=== PATIENT | female | born 1940 | race Caucasian/White ===

== ENCOUNTER → 2016-11-04 | Outpatient (CLI) | payer OTHER ==
[2016-11-04 15:49] LABS: ASPARTATE AMINO TRANSFERASE 20 IU/L (8-39); BILIRUBIN,TOTAL 0.8 mg/dL (0.3-1.2); BLOOD UREA NITROGEN 34 mg/dL (7-22); BUN/CREATININE RATIO 22.66 (6-20); CALCIUM 9.4 mg/dL (8.7-10.7); CHLORIDE 99 meq/L (98-112); CREATININE 1.5 mg/dL (0.50-1.20); GLUCOSE 100 mg/dL (78-110); POTASSIUM 4.3 meq/L (3.8-5.2); SODIUM 139 meq/L (135-145); TOTAL PROTEIN 6.2 g/dL (6.1-8.0)
== END ==
LOC: LAB 08:26
PROVIDERS: ATTEND Physician Assistant Medical
DX: E03.9 Hypothyroidism, unspecified (principal); I10 Essential (primary) hypertension; I50.9 Heart failure, unspecified
CPT/HCPCS: 80053; 84443

== ENCOUNTER → 2016-12-09 | Outpatient (CLI) | payer OTHER ==
[2016-12-09 14:52] LABS: BILIRUBIN,TOTAL 0.7 mg/dL (0.3-1.2); CALCIUM 9.5 mg/dL (8.7-10.7); CREATININE 1.2 mg/dL (0.50-1.20); POTASSIUM 5.1 meq/L (3.8-5.2); TOTAL PROTEIN 6.6 g/dL (6.1-8.0)
== END ==
LOC: LAB 09:23
PROVIDERS: ATTEND Physician Assistant Medical
DX: I50.9 Heart failure, unspecified (principal); I10 Essential (primary) hypertension
CPT/HCPCS: 36415; 80053

== ENCOUNTER → 2017-01-03 | Outpatient (CLI) | payer OTHER ==
[2017-01-03 15:23] LABS: BASOPHILS # (AUTO) 0.06 10*3/UL; EOSINOPHILS % (AUTO) 6.3 % (0-8); HEMATOCRIT 43.6 % (37.0-47.0); HEMOGLOBIN 14.1 g/dL (12.0-16.0); IMM GRAN % (AUTO) 0.2 % (0-5); IMM GRAN# (AUTO) 0.01 10*3/UL; LYMPHOCYTES # (AUTO) 1.37 10*3/uL; LYMPHOCYTES % (AUTO) 23.5 % (10-50); MEAN CORPUSCULAR HEMOGLOBIN 30.5 PG (27-31); MEAN CORPUSCULAR HGB CONC 32.3 g/dL (33-37); MEAN PLATELET VOLUME 10.5 FL (7.4-12.2); MONOCYTES # (AUTO) 0.52 10*3/UL (0.3-0.8); MONOCYTES % (AUTO) 8.9 % (5-15); NEUTROPHILS # (AUTO) 3.51 10*3/UL; NEUTROPHILS % (AUTO) 60.1 % (50-80); RED BLOOD COUNT 4.62 10^6/uL (4.20-5.40); WHITE BLOOD COUNT 5.84 10^3/uL (4.8-10.8)
[2017-01-03 15:31] LABS: BILIRUBIN,TOTAL 0.6 mg/dL (0.3-1.2); BUN/CREATININE RATIO 40.9 (6-20); CALCIUM 9.7 mg/dL (8.7-10.7); CREATININE 1.1 mg/dL (0.50-1.20); POTASSIUM 4.7 meq/L (3.8-5.2); TOTAL PROTEIN 6.9 g/dL (6.1-8.0)
[2017-01-03 15:43] LABS: PLATELET MORPHOLOGY COMMENT NORMAL MORPHOLOGY (NORM)
== END ==
LOC: LAB 09:43
PROVIDERS: ATTEND Physician Assistant Medical
DX: J44.1 Chronic obstructive pulmonary disease with (acute) exacerbation (principal); I10 Essential (primary) hypertension; I50.9 Heart failure, unspecified
CPT/HCPCS: 80053; 85025

== ENCOUNTER → 2017-01-05 | Outpatient (CLI) | payer OTHER ==
--- NOTE | 2017-01-05 11:00 | DI ---
PA /LATERAL CHEST X-RAY, 01/05/2017 10:38 AM : Clinical History: Acute exacerbation of chronic obstructive airway disease. Previous Exam: 06/18/2016. There is no acute soft tissue or bony abnormality. There is cardiomegaly without CHF. There is no acu te infiltrate present. There is thickening of a major fissure and this is probably on the left side w here there is a density noted on the PA film in the costophrenic angle. This has not changed and may represent some fibrosis. There is marked pulmonary arterial hypertension. There are no pulmonary nodu les. Readin. There is no acute infiltrate or effusion. There is pleural thickening involving the left costophr enic angle and the left major fissure. 2. Cardiomegaly without CHF. 3. Marked pulmonary arterial hypertension.
== END ==
LOC: RAD 10:33
PROVIDERS: ATTEND Physician Assistant Medical
DX: J44.1 Chronic obstructive pulmonary disease with (acute) exacerbation (principal); I27.2 Other secondary pulmonary hypertension
CPT/HCPCS: 71020

== ENCOUNTER → 2017-01-31 | Outpatient (CLI) | payer OTHER ==
[2017-01-31 14:34] LABS: BLOOD UREA NITROGEN 84 mg/dL (7-22); CALCIUM 10.2 mg/dL (8.7-10.7)
== END ==
LOC: LAB 10:26
PROVIDERS: ATTEND Physician Assistant Medical
DX: I42.0 Dilated cardiomyopathy (principal)
CPT/HCPCS: 80048

== ENCOUNTER → 2017-03-14 | Outpatient (CLI) | payer OTHER ==
[2017-03-14 14:48] LABS: BLOOD UREA NITROGEN 56 mg/dL (7-22); CALCIUM 9.1 mg/dL (8.7-10.7)
== END ==
LOC: LAB 10:05
PROVIDERS: ATTEND Physician Assistant Medical
DX: I42.0 Dilated cardiomyopathy (principal)
CPT/HCPCS: 80048

== ENCOUNTER 2017-03-18 12:22 | Inpatient (IN) | payer OTHER ==
[2017-03-18] MEDS ORDERED: NORMAL SALINE 10 ML SYRINGE FLUSH IVP PRN (12:44)
[2017-03-18] MEDS ORDERED: ALBUTEROL SULFATE 2.5 MG/3 ML NEB ONE (12:44)
--- NOTE | 2017-03-18 12:44 | PDOC ---
Dyspnea HPI - General Chief Complaint: Dyspnea Stated Complaint: Hypoxia, Chest Pressure Date Seen by Provider: 03/18/17 Time Seen by Provider: 12:44 Source: POSITIVE: Patient - History of Present Illness Initial Comments: Ms. Claudio is a 76-year-old woman coming in today with shortness of breath since last Tuesday which was 4 days ago. She denies any fevers she denies any productive cough although she does have a mild dry cough at baseline that is unchanged. She has no nausea no vomiting. She reports compliance with all medications. She recently had her carvedilol increased. She endorses orthopnea and feels better when she is lying in a specific position. She uses oxygen at night at baseline but she has been using it during the day as well. She lives in [facility] and her primary doctor was unavailable today and so she came to the urgent care here in [facility]. They sent her here because they found to be hypoxic 80% on her home 3 L. When EMS arrived urgent care they found her to be 92% on 3 L. They gave her a DuoNeb, and she states that this helped her symptoms. - Patient Home Medications Home Medications: Home Medications Cetirizine HCl [Zyrtec] 10 mg PO DAILY #90 cap 11/09/12 Diclofenac Sodium [Voltaren] 2 gm TOPICAL QID #60 tube 07/30/13 Oxygen (O2) 1 l NS HS #2 unit 07/30/13 Imipramine HCl 1 tab PO QHS tab 02/20/14 Amitriptyline HCl 50 mg PO HS #30 tab 01/14/15 Spironolactone 25 mg PO DAILY #90 tab 01/30/16 Albuterol/Ipratropium Inhaler [Combivent Respimat Inhaler] 1 puff INH QID #3 each 07/07/16 Budesonide/Formoterol Fumarate [Symbicort] 2 puff INH BID #3 inh 07/07/16 Albuterol Sulfate [Ventolin Hfa] 2 puff INH Q4-6H #1 inh 07/11/16 Oxybutynin Chloride 1 tab PO BID #60 tab 07/14/16 Lisinopril 1 tab PO DAILY tab 12/09/16 Albuterol/Ipratrop Neb Soln [Duoneb Neb Soln] 1 vial INH TID #60 vial 12/16/16 Nebulizer 1 unit #1 unit 12/16/16 Simvastatin 20 mg PO QHS #90 tab 01/07/17 Levothyroxine Sodium 1 tab PO DAILY #90 tab 01/19/17 Fluticasone Propionate [Flonase Allergy Relief] 2 spr ALLEGRA DAILY #1 spr Furosemide 1 tab PO BID #180 tab 02/16/17 Montelukast Sodium [Singulair] 1 tab ORAL QD #90 tab 02/16/17 Hydrocodone/Acetaminophen [Hydrocodon-Acetaminophen 5-325] 1 tab PO Q4-6H #120 tab 03/07/17 Apixaban [Eliquis] 5 mg PO BID tab 03/18/17 Carvedilol 1 tab PO tab 03/18/17 - Patient Allergies Allergies/Adverse Reactions: Allergies Allergy/AdvReac Type Severity Reaction Status Date / Time clonidine HCl [From Catapres] Allergy Mild ITCHING Verified 03/18/17 13:23 Past Medical History Past Medical History Reviewed: Reviewed - No Changes ROS - Limitations ROS Limitations: No Limitations Constitution: REPORTS: Weakness Cardiovascular: REPORTS: Denies Cardiac Symptoms Respiratory: REPORTS: Cough Non Productive, Shortness Of Breath Neurological: REPORTS: Denies Neuro Symptoms Gastrointestinal: REPORTS: Denies GI Symptoms Endocrine: REPORTS: Denies Symptoms Musculoskeletal: REPORTS: Denies MS Symptoms Genitourinary: REPORTS: Denies Symptoms Eyes: REPORTS: Denies Symptoms ENT: REPORTS: Denies Symptoms Skin: REPORTS: Denies Skin Symptoms Lympathic: REPORTS: Denies Lympathic Symptoms Immunologic: POSITIVE: Denies Symptoms Psychiatric: POSITIVE: Denies Psych Symptoms Dyspnea Physical Exam - General Appearance General Appearance: REPORTS: Alert, Cooperative, No Acute Distress - HEENT HEENT: POSITIVE: Head Inspection Nml, Eyes Inspection Nml, Ears Inspection Nml, Nose Inspection Nml, PERRL, EOMI - Neck Neck: REPORTS: Normal Inspection - Respiratory Respiratory: REPORTS: Other (Course diffusely with no eladio wheezing. Somewhat diminished in bilateral bases. She is speaking in full sentences and is in no respiratory distress, she has no retractions.) - Cardiovascular Cardiovascular: REPORTS: Regular Rate and Rhythm, Heart Sounds Normal, Equal Pulses, Strong Pulses, Other (No lower extremity edema) Peripheral Pulses: Radial (R): 1+, Radial (L): 1+, Dorsalis-pedis (R): 1+, Dorsalis-pedis (L): 1+ - Abdomen Abdomen: Soft: (All Quadrants), Denies Tenderness: (All Quadrants), No Guarding : (All Quadrants), No Rebound: (All Quadrants), No Palpable Pulse: (All Quadrants), No Palpabale Mass: (All Quadrants) - Skin Skin: REPORTS: Intact, Normal For Race, No Rash - Extremities Extremity: Non-Tender: (All Extremities), Normal ROM: (All Extremities), Normal Inspection: (All Extremities) - Neurological / Psychological Neurological: POSITIVE: Affect Apporpriate, Oriented X3, plant production manager Normal As Tested, Motor Normal, Sensation Normal Dyspnea Progress - Results Reviewed by me Xrays/CTs/US Reviewed by me: Yes Radiology Findings: atelctasis and small L pleural effusion on chest Xray Lab Results:: Laboratory Results 03/18/17 03/18/17 Range/Units 13:27 13:30 WBC 12.38 H (4.8-10.8) 10^3/uL RBC 4.05 L (4.20-5.40) 10^6/uL Hgb 12.5 (12.0-16.0) g/dL Hct 38.6 (37.0-47.0) % MCV 95.3 (81-99) FL MCH 30.9 (27-31) PG MCHC 32.4 L (33-37) g/dL RDW Std Deviation 45.9 (39-50) fL RDW Coeff of Catarino 13.6 (11.5-14.5) % Plt Count 199 (140-350) 10*3/uL MPV 10.3 (7.4-12.2) FL Immature Gran % (Auto) 0.5 (0-5) % Neut % (Auto) 82.1 H (50-80) % Lymph % (Auto) 8.7 L (10-50) % [place] % (Auto) 8.1 (5-15) % Eos % (Auto) 0.3 (0-8) % Baso % (Auto) 0.3 (0-1) % Immature Gran # (Auto) 0.06 10*3/UL Neut # (Auto) 10.16 10*3/UL Lymph # (Auto) 1.08 10*3/uL [place] # (Auto) 1.00 H (0.3-0.8) 10*3/UL Eos # (Auto) 0.04 10*3/UL Baso # (Auto) 0.04 10*3/UL WBC Morphology Comment Normal morphology (NORM) Plt Morphology Comment Normal morphology (NORM) RBC Morph Comment Normal morphology (NORM) PT 12.0 H (9.7-11.4) secs INR 1.16 (0.00-5.90) N/A VBG pH 7.40 (7.32-7.42) VBG pCO2 33 L (45-55) mmHg VBG HCO3 20 L (22-26) mmol/L VBG Base Excess -5 L (-2-2) MMOL/L Sodium 140 (135-145) meq/L Potassium 4.9 (3.8-5.2) meq/L Chloride 103 (98-112) meq/L Carbon Dioxide 24 (23-33) meq/L Anion Gap 13 (5-20) BUN 51 H (7-22) mg/dL Creatinine 1.4 H (0.50-1.20) mg/dL Estimated GFR Business Planning Manager BUN/Creatinine Ratio 36.42 H (6-20) Glucose 112 H (78-110) mg/dL Calculated Osmolality 304.0 H (267-292) mOsm/kg Calcium 8.8 (8.7-10.7) mg/dL Magnesium 2.1 (1.6-2.4) mg/dL Total Bilirubin 0.9 (0.3-1.2) mg/dL AST 18 (8-39) IU/L ALT 21 (9-52) IU/L Alkaline Phosphatase 84 (38-126) IU/L Troponin I 0.030 (< 0.040) ng/mL Total Protein 6.9 (6.1-8.0) g/dL Albumin 3.7 (3.5-4.8) g/dL Globulin 3.2 (2.50-4.10) g/dL Albumin/Globulin Ratio 1.10 L (1.3-2.0) mg/g EKG Interpretation:: POSITIVE: Normal Sinus Rhythm, Normal Rate - Patient's Progress MDM / ED Course: Ms. Claudio is a 76-year-old woman coming in today with shortness of breath and new hypoxemia. The DuoNeb did seem to help her breathing, but she is not wheezy and her blood gas CO2 is not elevated. Her chest x-ray shows no evidence of pneumonia. There was quite a bit of atelectasis which might be causing her hypoxia. There is no evidence of eladio pulmonary edema. We will plan to admit for monitoring of her hypoxemia and her story status. I contacted Dr. Lazcano who accepted the patient for admission. Patient remained otherwise stable in the emergency department Patient Care Time - Estimated PCT Patient Care Time (In Minutes): 30 Vital Signs - VS Reviewed Vital Signs Reviewed: Yes Discharge Clinical Impression: Chronic obstructive lung disease, Respiratory insufficiency Discharge Disposition: Admit to Inpatient Condition: Fair Care Transferred To: Dr Elliot Farley Date Decision to Admit to Inpatient: 03/18/17 Time Decision to Admit to Inpatient: 14:23
--- NOTE | 2017-03-18 12:50 | EKG ---
[address] [place] [address] Measurements Intervals [place] Rate: 95 P: 70 CT: 166 QRS: -69 QRSD: 154 T: 111 QT: 378 QTc: 430 Interpretive Statements SINUS RHYTHM WITH FREQUENT SUPRAVENTRICULAR PREMATURE COMPLEXES MARKED LEFT AXIS DEVIATION LEFT BUNDLE BRANCH BLOCK Compared to ECG 06/01/2016 14:28:40 No significant changes Electronically Signed On 03-18-17 18:00:00 MDT by Raul Couch [email or web address]
[2017-03-18 13:32] LABS: BASOPHILS # (AUTO) 0.04 10*3/UL; BASOPHILS % (AUTO) 0.3 % (0-1); EOSINOPHILS # (AUTO) 0.04 10*3/UL; EOSINOPHILS % (AUTO) 0.3 % (0-8); HEMATOCRIT 38.6 % (37.0-47.0); HEMOGLOBIN 12.5 g/dL (12.0-16.0); LYMPHOCYTES # (AUTO) 1.08 10*3/uL; MEAN CORPUSCULAR HEMOGLOBIN 30.9 PG (27-31); MEAN CORPUSCULAR HGB CONC 32.4 g/dL (33-37); MEAN CORPUSCULAR VOLUME 95.3 FL (81-99); MEAN PLATELET VOLUME 10.3 FL (7.4-12.2); MONOCYTES % (AUTO) 8.1 % (5-15); NEUTROPHILS # (AUTO) 10.16 10*3/UL; NEUTROPHILS % (AUTO) 82.1 % (50-80); RED BLOOD COUNT 4.05 10^6/uL (4.20-5.40)
[2017-03-18 13:45] LABS: VENOUS PH 7.4 (7.32-7.42)
[2017-03-18 14:07] LABS: BLOOD UREA NITROGEN 51 mg/dL (7-22); BUN/CREATININE RATIO 36.42 (6-20); CALCIUM 8.8 mg/dL (8.7-10.7); PLATELET MORPHOLOGY COMMENT NORMAL MORPHOLOGY (NORM); RBC MORPHOLOGY COMMENT NORMAL MORPHOLOGY (NORM); WBC MORPHOLOGY COMMENT NORMAL MORPHOLOGY (NORM)
[2017-03-18 14:08] LABS: SERUM ALBUMIN 3.7 g/dL (3.5-4.8)
--- NOTE | 2017-03-18 14:10 | DI ---
AP CHEST X-RAY, 03/18/2017 12:45 PM : Clinical History: Dyspnea. Previous Exam: 01/05/2017. There is no acute soft tissue or bony abnormality. There is cardiomegaly without definite CHF. There is blunting of the left costophrenic angle probably secondary to fluid. Bilateral lower lobe atelecta sis is present. There is also some atelectasis in the right midlung field. There is pulmonary arteria l hypertension. There are no pulmonary nodules. Readin. Cardiomegaly without CHF. 2. Bilateral lower lobe atelectasis with probable left pleural effusion.
[2017-03-18] MEDS ORDERED: LIDOCAINE W/ SODIUM BICARB 0.5 ML SYR SUBD PRN (15:01)
[2017-03-18] MEDS ORDERED: methylPREDNISolone 125 MG/2 ML VIAL IVP SCH (15:01)
[2017-03-18] MEDS ORDERED: cefTRIAXone Inj 2 GM in Sodium Chloride 0.9% 100 ML IV SCH (15:01)
[2017-03-18] MEDS: IPRATROPIUM/ALBUTEROL SULFATE 3 ML NEB NEB SCH ×2 (15:41→19:47)
[2017-03-18] MEDS ORDERED: POTASSIUM CHLORIDE 20 MEQ TAB PO ONE (16:03)
[2017-03-18] MEDS ORDERED: FUROSEMIDE 10 MG/1 ML - 10 ML IVP ONE (16:03)
--- NOTE | 2017-03-18 16:38 | PDOC ---
History and Physical - History of Present Illness Date and Time of Service: 03/18/2017, 16:30 Chief Complaint: chest discomfort and shortness of breath History of Present Illness: This is a 76 YO female that presents with some chest tightness and shortness of breath since Tuesday. She says her coreg was increased that day and that she has not noticed much help with diuresis with spironolactone. She states that this has been getting worse and her ironing pleater recommended she come in for evaluation. Her chest X-ray showed a small pleural effusion. Troponin was negative. Has had these symptoms with CHF exacerbations in May of this past year. Denies a lot of swelling in lower extremities, but has had some cough with her shortness of breath the past two days. She denies any other exacerbating symptoms. Short of taking her medications as prescribed, no further interventions were tried prior to calling her ironing pleater office today. She denies any prior ND and states she was placed on eliquis because her blood was too thick to complete a heart catheterization. Past Medical History Medical History: 1. CHF, probably NYHA class II-III. 2. COPD. 3. RALF, but cannot tolerate CPAP therapy. 4. HTN. 5. Arthritis. 6. Hypothyroidism. 7. Seasonal allergies Surgical History: 1. Appendectomy. 2. Hysterectomy. 3. LAP-BAND. 4. Total Knee Replacement. 5. Total Shoulder Replacement. 6. heart catheterization, per patient, in past 12 months. Pertinent Family History: no family history of CHF. no family history of diabetes. Past Social History: does not smoke or drink. . 4 children, but one passed on. Lives near [place], [place]. Tobacco Use: Never Smoker Substance Use Type: None Alcohol Use: None Medication / Allergies Home Medications: Home Medications Medication Instructions Recorded Confirmed Type Cetirizine HCl [Zyrtec] 10 mg PO DAILY #90 cap 11/09/12 03/18/17 Clinic Diclofenac Sodium [Voltaren] 2 gm TOPICAL QID #60 tube 07/30/13 03/18/17 Clinic Oxygen (O2) 1 l NS HS #2 unit 07/30/13 Clinic Imipramine HCl 1 tab PO QHS tab 02/20/14 03/18/17 History Amitriptyline HCl 50 mg PO HS #30 tab 01/14/15 03/18/17 Clinic Spironolactone 25 mg PO DAILY #90 tab 01/30/16 03/18/17 Clinic Albuterol/Ipratropium Inhaler 1 puff INH QID #3 each 07/07/16 Clinic [Combivent Respimat Inhaler] Budesonide/Formoterol Fumarate 2 puff INH BID #3 inh 07/07/16 03/18/17 Clinic [Symbicort] Albuterol Sulfate [Ventolin Hfa] 2 puff INH Q4-6H #1 inh 07/11/16 Clinic Oxybutynin Chloride 1 tab PO BID #60 tab 07/14/16 03/18/17 Clinic Lisinopril 1 tab PO DAILY tab 12/09/16 03/18/17 History Albuterol/Ipratrop Neb Soln 1 vial INH TID #60 vial 12/16/16 Clinic [Duoneb Neb Soln] Nebulizer 1 unit #1 unit 12/16/16 Clinic Simvastatin 20 mg PO QHS #90 tab 01/07/17 03/18/17 Clinic Levothyroxine Sodium 1 tab PO DAILY #90 tab 01/19/17 03/18/17 Clinic Fluticasone Propionate [Flonase 2 spr ALLEGRA DAILY #1 spr 01/28/17 03/18/17 Clinic Allergy Relief] Furosemide 1 tab PO BID #180 tab 02/16/17 03/18/17 Clinic Montelukast Sodium [Singulair] 1 tab ORAL QD #90 tab 02/16/17 03/18/17 Clinic Hydrocodone/Acetaminophen 1 tab PO Q4-6H #120 tab 03/07/17 03/18/17 Clinic [Hydrocodon-Acetaminophen 5-325] Apixaban [Eliquis] 5 mg PO BID tab 03/18/17 03/18/17 History Carvedilol 1 tab PO BID tab 03/18/17 03/18/17 History Allergies/Adverse Reactions: Allergies Allergy/AdvReac Type Severity Reaction Status Date / Time clonidine HCl [From Catapres] Allergy Mild ITCHING Verified 03/18/17 15:16 Review of Systems - Review of Systems All Systems: Reviewed & No Additional Complaints Except as Stated (I did a 12 point review of systems, and it was negative exept as per HPI and that noted below:) - Respiratory Respiratory: REPORTS: Cough, Dyspnea At Rest, Dyspnea with Exertion - Cardiovascular Cardiovascular: REPORTS: Chest Pain - Gastrointestinal Gastrointestinal / Abdominal: REPORTS: Negative System Review - Genitourinary Genitourinary: REPORTS: Incontinence (chronic) - Musculoskeletal Musculoskeletal: REPORTS: Other (some arthritis) - Neurological Neurologic: REPORTS: Headache (this week.) Exam - Vitals Vital Signs: Vital Signs Height 5 ft Weight 192 lb 11.2 oz Vital Signs - Last Taken Temperature 98.7 F 03/18/17 12:36 Pulse Rate 67 03/18/17 12:36 Respiratory Rate 16 03/18/17 12:36 Blood Pressure 124/43 03/18/17 12:36 Pulse Ox 96 03/18/17 12:36 on oxygen. - General General Appearance: POSITIVE: No Acute Distress, Cooperative, Obese - Head Head Exam: POSITIVE: Normal Inspection, Normocephalic, Atraumatic - Eye Eye Exam: POSITIVE: No Scleral Icterus - ENT ENT Exam: POSITIVE: Mucous Membranes Moist - Neck Neck Exam: POSITIVE: Normal Inspection, No Tenderness, No Thyromegaly - Respiratory Respiratory Exam: POSITIVE: Breathing Non Labored, Normal to Percussion and Palpation, Wheezes - Cardiovascular Cardiovascular Exam: POSITIVE: RRR, No Murmur, No Clicks, No Gallops, No Rubs, No JVD - GI/Abdominal GI/Abdominal Exam: POSITIVE: Normal Bowel Sounds, Non Tender, Non Distended, Soft - Rectal Rectal Exam: POSITIVE: Deferred - External Exam: POSITIVE: Deferred Exam: POSITIVE: Deferred - Extremities Extremities Exam: POSITIVE: No Clubbing Present, No Cyanosis Present, +1 Edema - Back Back Exam: POSITIVE: No CVA Tenderness - Neurological Neurological Exam: POSITIVE: Alert, Oriented x 3, No Facial Droop, Speech Intact / Clear, Moves All Extremities Equally - Psychiatric Psychiatric Exam: POSITIVE: Normal Affect, Normal Mood - Central Line Examination Central Line Present on Admission: No Results - Labs CBC and BMP: 03/18/17 13:27 03/18/17 13:27 Labs - Last 24 Hours: Laboratory Results 03/18/17 03/18/17 Range/Units 13:27 13:30 WBC 12.38 H (4.8-10.8) 10^3/uL RBC 4.05 L (4.20-5.40) 10^6/uL Hgb 12.5 (12.0-16.0) g/dL Hct 38.6 (37.0-47.0) % MCV 95.3 (81-99) FL MCH 30.9 (27-31) PG MCHC 32.4 L (33-37) g/dL RDW Std Deviation 45.9 (39-50) fL RDW Coeff of Catarino 13.6 (11.5-14.5) % Plt Count 199 (140-350) 10*3/uL MPV 10.3 (7.4-12.2) FL Immature Gran % (Auto) 0.5 (0-5) % Neut % (Auto) 82.1 H (50-80) % Lymph % (Auto) 8.7 L (10-50) % [place] % (Auto) 8.1 (5-15) % Eos % (Auto) 0.3 (0-8) % Baso % (Auto) 0.3 (0-1) % Immature Gran # (Auto) 0.06 10*3/UL Neut # (Auto) 10.16 10*3/UL Lymph # (Auto) 1.08 10*3/uL [place] # (Auto) 1.00 H (0.3-0.8) 10*3/UL Eos # (Auto) 0.04 10*3/UL Baso # (Auto) 0.04 10*3/UL WBC Morphology Comment Normal morphology (NORM) Plt Morphology Comment Normal morphology (NORM) RBC Morph Comment Normal morphology (NORM) PT 12.0 H (9.7-11.4) secs INR 1.16 (0.00-5.90) N/A VBG pH 7.40 (7.32-7.42) VBG pCO2 33 L (45-55) mmHg VBG HCO3 20 L (22-26) mmol/L VBG Base Excess -5 L (-2-2) MMOL/L Sodium 140 (135-145) meq/L Potassium 4.9 (3.8-5.2) meq/L Chloride 103 (98-112) meq/L Carbon Dioxide 24 (23-33) meq/L Anion Gap 13 (5-20) BUN 51 H (7-22) mg/dL Creatinine 1.4 H (0.50-1.20) mg/dL Estimated GFR Android Platform Developer BUN/Creatinine Ratio 36.42 H (6-20) Glucose 112 H (78-110) mg/dL Calculated Osmolality 304.0 H (267-292) mOsm/kg Calcium 8.8 (8.7-10.7) mg/dL Magnesium 2.1 (1.6-2.4) mg/dL Total Bilirubin 0.9 (0.3-1.2) mg/dL AST 18 (8-39) IU/L ALT 21 (9-52) IU/L Alkaline Phosphatase 84 (38-126) IU/L Troponin I 0.030 (< 0.040) ng/mL Total Protein 6.9 (6.1-8.0) g/dL Albumin 3.7 (3.5-4.8) g/dL Globulin 3.2 (2.50-4.10) g/dL Albumin/Globulin Ratio 1.10 L (1.3-2.0) mg/g - EKG Data -: EKG Interpreted by Me Rate: Normal EKG Shows Normal: Sinus Rhythm - EKG Data EKG Interpretation: Other (left bundle branch block) - Imaging Status: Image Reviewed by Me (CXR, on my view, with small pleural effusion on the left, no evidence of pneumonia.) Assessment and Plan - Patient Problems (1) CHF (congestive heart failure), NYHA class III Current Visit: Yes Status: Acute Qualifiers: Congestive heart failure type: combined Congestive heart failure chronicity: acute on chronic Qualified Description: Congestive heart failure , NYHA class 3, acute on chronic, combined Qualifier Code(s): (I50.43) Acute on chronic combined systolic (congestive) and diastolic (congestive) heart failure (2) Chronic obstructive lung disease Current Visit: Yes Status: Acute (3) HTN (hypertension) Current Visit: Yes Status: Acute Qualifiers: Hypertension type: essential hypertension Qualified Description: Essential hypertension Qualifier Code(s): (I10) Essential (primary) hypertension (4) Hypothyroid Current Visit: Yes Status: Acute Qualifiers: Hypothyroidism type: acquired Qualified Description: Acquired hypothyroidism Qualifier Code(s): (E03.9) Hypothyroidism, unspecified (5) Obesity (BMI 30-39.9) Current Visit: Yes Status: Acute - Assessment / Plan Additional Assessment/Plan Details: admit diurese with lasix IV strict I and O and daily weights check troponins get records from [facility] if possible for heart catheterization and ECHO if possible check labs in AM reduce coreg to 6.25 mg BID given intolerance to higher dose, stop spironolactone and start lasix at higher doses. The patient does not feel like spironolactone has made her feel better or help with diresis. continue ACEI FULL CODE, discussed plan with patient and she agrees.
[2017-03-18] MEDS ORDERED: DICLOFENAC SODIUM 2 GM TOPICAL SCH (17:00)
[2017-03-18] MEDS: NORMAL SALINE 10 ML SYRINGE FLUSH IVP PRN (17:21)
[2017-03-18] MEDS: FLUTICASONE/SALMETEROL 250/50 UD INHALER INH SCH (19:48)
[2017-03-18] MEDS: AMITRIPTYLINE 25 MG TABLET PO SCH (20:35)
[2017-03-18] MEDS: CARVEDILOL 12.5 MG TABLET PO SCH (20:35)
[2017-03-18] MEDS: FLUTICASONE PROPIONATE 16 GRAM (120 SPRAYS / BOTTLE) ENOS SCH (20:36)
[2017-03-18] MEDS: Simvastatin Tab 20 MG TAB PO SCH (20:36)
[2017-03-18] MEDS: Oxybutynin ER Tab 5 MG TAB PO SCH (20:36)
[2017-03-18] MEDS: Apixaban 5 MG TABLET PO SCH (20:36)
[2017-03-18] MEDS ORDERED: FUROSEMIDE 40 MG TABLET PO SCH (21:00)
[2017-03-18] MEDS ORDERED: CARVEDILOL 12.5 MG TABLET PO SCH (21:00)
[2017-03-18] MEDS ORDERED: IMIPRAMINE HCL 25 MG PO SCH (21:00)
[2017-03-18] MEDS ORDERED: Non-Formulary Drug (Budesonide/Formoterol Fumarate [Symbicort] 2 PUFF) INH SCH (21:00)
[2017-03-19] MEDS: LEVOTHYROXINE 100 MCG TABLET PO SCH (05:04)
[2017-03-19 05:28] LABS: VENOUS PH 7.41 (7.32-7.42)
[2017-03-19 05:38] LABS: BASOPHILS # (AUTO) 0.02 10*3/UL; BASOPHILS % (AUTO) 0.2 % (0-1); EOSINOPHILS # (AUTO) 0.14 10*3/UL; EOSINOPHILS % (AUTO) 1.5 % (0-8); HEMATOCRIT 36.6 % (37.0-47.0); HEMOGLOBIN 11.9 g/dL (12.0-16.0); LYMPHOCYTES # (AUTO) 1.07 10*3/uL; MEAN CORPUSCULAR HEMOGLOBIN 30.4 PG (27-31); MEAN CORPUSCULAR HGB CONC 32.5 g/dL (33-37); MEAN CORPUSCULAR VOLUME 93.4 FL (81-99); MEAN PLATELET VOLUME 10.5 FL (7.4-12.2); MONOCYTES # (AUTO) 0.99 10*3/UL (0.3-0.8); MONOCYTES % (AUTO) 10.8 % (5-15); NEUTROPHILS # (AUTO) 6.94 10*3/UL; NEUTROPHILS % (AUTO) 75.6 % (50-80); RED BLOOD COUNT 3.92 10^6/uL (4.20-5.40)
[2017-03-19 05:39] LABS: PLATELET MORPHOLOGY COMMENT NORMAL MORPHOLOGY (NORM); RBC MORPHOLOGY COMMENT NORMAL MORPHOLOGY (NORM); WBC MORPHOLOGY COMMENT NORMAL MORPHOLOGY (NORM)
[2017-03-19 05:57] LABS: BLOOD UREA NITROGEN 59 mg/dL (7-22); BUN/CREATININE RATIO 39.33 (6-20); CALCIUM 8.9 mg/dL (8.7-10.7)
[2017-03-19] MEDS: IPRATROPIUM/ALBUTEROL SULFATE 3 ML NEB NEB SCH ×4 (06:30→19:03)
[2017-03-19] MEDS: FLUTICASONE/SALMETEROL 250/50 UD INHALER INH SCH ×2 (06:33→19:02)
[2017-03-19] MEDS: FUROSEMIDE 10 MG/1 ML - 4 ML IVP SCH ×2 (07:02→13:13)
[2017-03-19] MEDS: Oxybutynin ER Tab 5 MG TAB PO SCH ×2 (08:46→21:10)
[2017-03-19] MEDS: POTASSIUM CHLORIDE 20 MEQ TAB PO SCH (08:46)
[2017-03-19] MEDS: Montelukast Tab 10 MG TAB PO SCH (08:46)
[2017-03-19] MEDS: LORATADINE 10 MG TABLET PO SCH (08:46)
[2017-03-19] MEDS: HYDROcodone-APAP 5 MG -325 MG TABLET PO PRN ×2 (08:46→21:10)
[2017-03-19] MEDS ORDERED: Spironolactone Tab 25 MG TAB PO SCH (09:00)
[2017-03-19] MEDS: LISINOPRIL 5 MG TABLET PO SCH (09:33)
[2017-03-19] MEDS: CARVEDILOL 12.5 MG TABLET PO SCH ×2 (09:41→21:09)
[2017-03-19] MEDS: FLUTICASONE PROPIONATE 16 GRAM (120 SPRAYS / BOTTLE) ENOS SCH ×2 (09:41→21:10)
[2017-03-19] MEDS: Apixaban 5 MG TABLET PO SCH ×2 (09:41→21:10)
--- NOTE | 2017-03-19 15:03 | PDOC(PROG) ---
Date and Time of Service: 03/19/2017, 1504 Interval History: Chest pain has improved. Shortness of breath about the same, to slightly improved. She states she doesn't know why she was put on imipramine in combination with amitriptyline, but I will stop that at this time. She thinks that she is put on it for her bladder. No nausea or vomiting. Objective : Data - Labs CBC and BMP: 03/19/17 05:15 03/19/17 05:15 Labs - Last 24 Hours: Laboratory Results 03/18/17 03/19/17 03/19/17 Range/Units 17:00 05:08 05:15 WBC 9.18 (4.8-10.8) 10^3/uL RBC 3.92 L (4.20-5.40) 10^6/uL Hgb 11.9 L (12.0-16.0) g/dL Hct 36.6 L (37.0-47.0) % MCV 93.4 (81-99) FL MCH 30.4 (27-31) PG MCHC 32.5 L (33-37) g/dL RDW Std Deviation 45.8 (39-50) fL RDW Coeff of Catarino 13.7 (11.5-14.5) % Plt Count 206 (140-350) 10*3/uL MPV 10.5 (7.4-12.2) FL Immature Gran % (Auto) 0.2 (0-5) % Neut % (Auto) 75.6 (50-80) % Lymph % (Auto) 11.7 (10-50) % [place] % (Auto) 10.8 (5-15) % Eos % (Auto) 1.5 (0-8) % Baso % (Auto) 0.2 (0-1) % Immature Gran # (Auto) 0.02 10*3/UL Neut # (Auto) 6.94 10*3/UL Lymph # (Auto) 1.07 10*3/uL [place] # (Auto) 0.99 H (0.3-0.8) 10*3/UL Eos # (Auto) 0.14 10*3/UL Baso # (Auto) 0.02 10*3/UL WBC Morphology Comment Normal morphology (NORM) Plt Morphology Comment Normal morphology (NORM) RBC Morph Comment Normal morphology (NORM) VBG pH 7.41 (7.32-7.42) VBG pCO2 38 L (45-55) mmHg VBG HCO3 24 (22-26) mmol/L VBG Base Excess -1 (-2-2) MMOL/L Sodium 139 (135-145) meq/L Potassium 4.3 (3.8-5.2) meq/L Chloride 105 (98-112) meq/L Carbon Dioxide 25 (23-33) meq/L Anion Gap 9 (5-20) BUN 59 H (7-22) mg/dL Creatinine 1.5 H (0.50-1.20) mg/dL Estimated GFR Business Advisor BUN/Creatinine Ratio 39.33 H (6-20) Glucose 101 (78-110) mg/dL Calculated Osmolality 304.0 H (267-292) mOsm/kg Calcium 8.9 (8.7-10.7) mg/dL Troponin I 0.017 0.015 (< 0.040) ng/mL NT-Pro-B Natriuret Pep 1450 H (0-450) PG/ML Objective : Exam - General General Appearance: No Acute Distress, Cooperative Additional General Exam Details: Vital Signs - Last Taken Temperature 98 F 03/19/17 12:34 Pulse Rate 67 03/19/17 12:34 Respiratory Rate 18 03/19/17 12:34 Blood Pressure 120/55 03/19/17 12:34 Pulse Ox 96 03/19/17 12:34 - Head Head Exam: Normal Inspection, Normocephalic, Atraumatic - Eye Eye Exam: No Scleral Icterus - Respiratory Respiratory Exam: Breathing Non Labored, Decreased Breath Sounds (In the bases, but slightly improved over yesterday.) - Cardiovascular Cardiovascular Exam: RRR, No Murmur, No Clicks, No Gallops, No Rubs, No JVD - GI/Abdominal GI/Abdominal Exam: Normal Bowel Sounds, Non Tender, Non Distended, Soft - Extremities Extremities Exam: No Clubbing Present, No Cyanosis Present, +1 Edema - Neurological Neurological Exam: Alert, Oriented x 3, No Facial Droop, Speech Intact / Clear, Moves All Extremities Equally - Psychiatric Psychiatric Exam: Normal Affect, Normal Mood Assessment and Plan - Patient Problems (1) CHF (congestive heart failure), NYHA class III Current Visit: Yes Status: Acute Qualifiers: Congestive heart failure type: combined Congestive heart failure chronicity: acute on chronic Qualified Description: Congestive heart failure , NYHA class 3, acute on chronic, combined Qualifier Code(s): (I50.43) Acute on chronic combined systolic (congestive) and diastolic (congestive) heart failure (2) Chronic obstructive lung disease Current Visit: Yes Status: Acute (3) HTN (hypertension) Current Visit: Yes Status: Acute Qualifiers: Hypertension type: essential hypertension Qualified Description: Essential hypertension Qualifier Code(s): (I10) Essential (primary) hypertension (4) Hypothyroid Current Visit: Yes Status: Acute Qualifiers: Hypothyroidism type: acquired Qualified Description: Acquired hypothyroidism Qualifier Code(s): (E03.9) Hypothyroidism, unspecified (5) Obesity (BMI 30-39.9) Current Visit: Yes Status: Acute (6) Urinary incontinence Current Visit: Yes Status: Acute Qualifiers: Urinary Incontinence type: unspecified incontinence Qualified Description: Urinary incontinence, unspecified type Qualifier Code(s): ( R32) Unspecified urinary incontinence - Assessment / Plan Additional Assessment/Plan Details: Stop imipramine. Continue Lasix and potassium replacement and diuresis. Check labs again tomorrow. Oxygen as necessary. Ultimately, I think the patient's insomnia that she talked about with me today as well is related to her obstructive sleep apnea that is not being treated. She has not been able to tolerate the mask or nasal pressure.
[2017-03-19] MEDS: AMITRIPTYLINE 25 MG TABLET PO SCH (21:09)
[2017-03-19] MEDS: Simvastatin Tab 20 MG TAB PO SCH (21:09)
[2017-03-19] MEDS: BENZONATATE 100 MG CAPSULE PO SCH (21:09)
[2017-03-19] MEDS ORDERED: predniSONE Tab 10 MG TAB PO ONE (21:18)
[2017-03-19] MEDS ORDERED: ACETAMINOPHEN 325 MG TABLET PO PRN (21:47)
[2017-03-19] MEDS: cefTRIAXone Inj 2 GM in Sodium Chloride 0.9% 100 ML IV SCH (22:09)
[2017-03-20] MEDS: LEVOTHYROXINE 100 MCG TABLET PO SCH (04:40)
[2017-03-20 06:28] LABS: HEMATOCRIT 35.5 % (37.0-47.0); HEMOGLOBIN 11.6 g/dL (12.0-16.0); MEAN CORPUSCULAR HEMOGLOBIN 30.6 PG (27-31); MEAN CORPUSCULAR HGB CONC 32.7 g/dL (33-37); MEAN CORPUSCULAR VOLUME 93.7 FL (81-99); MEAN PLATELET VOLUME 10.2 FL (7.4-12.2); RED BLOOD COUNT 3.79 10^6/uL (4.20-5.40)
[2017-03-20 06:29] LABS: BASOPHILS # (AUTO) 0.02 10*3/UL; BASOPHILS % (AUTO) 0.2 % (0-1); EOSINOPHILS # (AUTO) 0 10*3/UL; EOSINOPHILS % (AUTO) 0 % (0-8); LYMPHOCYTES # (AUTO) 0.63 10*3/uL; MONOCYTES # (AUTO) 0.31 10*3/UL (0.3-0.8); MONOCYTES % (AUTO) 3.6 % (5-15); NEUTROPHILS # (AUTO) 7.68 10*3/UL; NEUTROPHILS % (AUTO) 88.7 % (50-80); PLATELET MORPHOLOGY COMMENT NORMAL MORPHOLOGY (NORM); RBC MORPHOLOGY COMMENT NORMAL MORPHOLOGY (NORM); WBC MORPHOLOGY COMMENT NORMAL MORPHOLOGY (NORM)
[2017-03-20 06:32] LABS: BLOOD UREA NITROGEN 63 mg/dL (7-22); CALCIUM 8.6 mg/dL (8.7-10.7)
[2017-03-20] MEDS: IPRATROPIUM/ALBUTEROL SULFATE 3 ML NEB NEB SCH ×4 (06:40→19:24)
[2017-03-20] MEDS: HYDROcodone-APAP 5 MG -325 MG TABLET PO PRN ×3 (06:43→22:52)
[2017-03-20] MEDS: FLUTICASONE/SALMETEROL 250/50 UD INHALER INH SCH ×2 (06:45→19:26)
[2017-03-20] MEDS: FUROSEMIDE 10 MG/1 ML - 4 ML IVP SCH ×2 (07:01→14:20)
--- NOTE | 2017-03-20 08:06 | DI ---
HISTORY: Cough and fever. COMPARISON: 03/18/2017. TECHNIQUE: Single frontal image obtained. FINDINGS: Ill-defined opacities in the left lung base appear minimally improved to unchanged when co mpared to the prior examination, and could reflect a combination of atelectasis with adjacent effusio n. Superimposed infection is not excluded. The right lung is unchanged. There is a right humeral prosthesis. The heart is borderline enlarged. There is thickening of the right paratracheal stripe. IMPRESSION: 1. Ill-defined opacities in the left lung base appear minimally improved to unchanged when compared t o the prior examination, and could reflect a combination of atelectasis with adjacent effusion. Supe rimposed infection is not excluded. 2. There is a right humeral prosthesis. 3. The heart is borderline enlarged. 4. There is thickening of the right paratracheal stripe.
[2017-03-20] MEDS: CARVEDILOL 12.5 MG TABLET PO SCH ×2 (09:28→20:39)
[2017-03-20] MEDS: LORATADINE 10 MG TABLET PO SCH (09:28)
[2017-03-20] MEDS: predniSONE Tab 20 MG TAB PO SCH (09:28)
[2017-03-20] MEDS: BENZONATATE 100 MG CAPSULE PO SCH ×3 (09:29→20:38)
[2017-03-20] MEDS: Montelukast Tab 10 MG TAB PO SCH (09:29)
[2017-03-20] MEDS: Oxybutynin ER Tab 5 MG TAB PO SCH ×2 (09:29→20:38)
[2017-03-20] MEDS: POTASSIUM CHLORIDE 20 MEQ TAB PO SCH (09:29)
[2017-03-20] MEDS: Apixaban 5 MG TABLET PO SCH ×2 (09:29→20:39)
[2017-03-20] MEDS: LISINOPRIL 5 MG TABLET PO SCH (09:29)
[2017-03-20] MEDS: FLUTICASONE PROPIONATE 16 GRAM (120 SPRAYS / BOTTLE) ENOS SCH ×2 (09:37→20:42)
--- NOTE | 2017-03-20 13:07 | DI ---
HISTORY: Cough, fever and heart failure. Renal insufficiency. COMPARISON: None available. TECHNIQUE: Routine institution specific CT chest protocol without IV contrast. MPR. Shoulder arthr oplasty results in significant beam-hardening artifact limiting evaluation. FINDINGS: Lungs: Bibasilar opacities which are most prominent at the cardiophrenic and left costophrenic angle s are noted. Additional airway thickening. Scattered right middle lobe opacities are present. The lungs are without significant pleural effusion or pneumothorax. Mediastinum: No mediastinal adenopathy is seen. Heart: Mild cardiac enlargement and is noted. Vessels: Moderate atherosclerotic vascular disease of the coronary arteries and thoracic aorta. Upper abdomen: The imaged organs in the upper abdomen are without acute abnormality. Changes from prior gastric band procedure. Osseous structures: Multilevel thoracic degenerative changes without acute osseous finding identifie d. Right shoulder hemiarthroplasty. IMPRESSION: 1. Right middle lobe and bibasilar opacities which are most prominent at the cardiophrenic and left c ostophrenic angles and airway thickening. Findings may represent atelectasis vs early infiltrate. No lobar consolidation or significant pleural effusion. 2. Mild cardiac enlargement and moderate atherosclerotic coronary vascular disease. @
[2017-03-20] MEDS ORDERED: TIOTROPIUM BROMIDE 18 MCG CAPSULE INH ONE (15:32)
--- NOTE | 2017-03-20 17:57 | PDOC(PROG) ---
Date and Time of Service: 03/12/2017, 1754 Interval History: Patient seen and evaluated earlier. She states that her chest discomfort has gone down by 90%. Cough improved after starting antibiotics and steroids yesterday. I repeat chest x-ray done today on my view does not show any evidence of pleural effusion, and I do not see any evidence of pneumonia, but given the cough and fever that the patient had yesterday, I did a CT scan of the chest that shows bilateral small early infiltrates. Difficult to say if these are true pneumonias, but I think she warrants treatment as pneumonia/COPD exacerbation with antibiotics and steroids continuing. Patient agreed. She states that Combivent really helped her in the past and that she would be interested in seeing Dr. Ervin who she saw in the past in [place], but he is practicing in [place], [place] now. Try Spiriva. I think the heart failure is under good control and we'll stop the catheter today. Objective : Data - Labs CBC and BMP: 03/20/17 04:40 03/20/17 04:40 Labs - Last 24 Hours: Laboratory Results 03/20/17 Range/Units 04:40 WBC 8.66 (4.8-10.8) 10^3/uL RBC 3.79 L (4.20-5.40) 10^6/uL Hgb 11.6 L (12.0-16.0) g/dL Hct 35.5 L (37.0-47.0) % MCV 93.7 (81-99) FL MCH 30.6 (27-31) PG MCHC 32.7 L (33-37) g/dL RDW Std Deviation 45.5 (39-50) fL RDW Coeff of Catarino 13.8 (11.5-14.5) % Plt Count 251 (140-350) 10*3/uL MPV 10.2 (7.4-12.2) FL Immature Gran % (Auto) 0.2 (0-5) % Neut % (Auto) 88.7 H (50-80) % Lymph % (Auto) 7.3 L (10-50) % Stephens % (Auto) 3.6 L (5-15) % Eos % (Auto) 0 (0-8) % Baso % (Auto) 0.2 (0-1) % Immature Gran # (Auto) 0.02 10*3/UL Neut # (Auto) 7.68 10*3/UL Lymph # (Auto) 0.63 10*3/uL Stephens # (Auto) 0.31 (0.3-0.8) 10*3/UL Eos # (Auto) 0 10*3/UL Baso # (Auto) 0.02 10*3/UL WBC Morphology Comment Normal morphology (NORM) Plt Morphology Comment Normal morphology (NORM) RBC Morph Comment Normal morphology (NORM) Sodium 137 (135-145) meq/L Potassium 5.1 (3.8-5.2) meq/L Chloride 104 (98-112) meq/L Carbon Dioxide 23 (23-33) meq/L Anion Gap 10 (5-20) BUN 63 H (7-22) mg/dL Creatinine 1.5 H (0.50-1.20) mg/dL Estimated GFR Casing Tester BUN/Creatinine Ratio 42.00 H (6-20) Glucose 170 H (78-110) mg/dL Calculated Osmolality 305.0 H (267-292) mOsm/kg Calcium 8.6 L (8.7-10.7) mg/dL Objective : Exam - General General Appearance: No Acute Distress, Cooperative Additional General Exam Details: Vital Signs - Last Taken Temperature 98.1 F 03/20/17 16:40 Pulse Rate 57 L 03/20/17 16:40 Respiratory Rate 20 03/20/17 16:40 Blood Pressure 127/57 03/20/17 16:40 Pulse Ox 93 03/20/17 16:40 - Eye Eye Exam: No Scleral Icterus - ENT ENT Exam: Mucous Membranes Moist - Respiratory Respiratory Exam: Breathing Non Labored, Decreased Breath Sounds (In the lower lungs bilaterally) - Cardiovascular Cardiovascular Exam: RRR, No Murmur, No Clicks, No Gallops, No Rubs, No JVD - GI/Abdominal GI/Abdominal Exam: Normal Bowel Sounds, Non Tender, Non Distended, Soft - Extremities Extremities Exam: No Clubbing Present, No Edema Present, No Cyanosis Present - Neurological Neurological Exam: Alert, Oriented x 3, No Facial Droop, Speech Intact / Clear, Moves All Extremities Equally Assessment and Plan - Patient Problems (1) COPD exacerbation Current Visit: Yes Status: Acute (2) CHF (congestive heart failure), NYHA class III Current Visit: Yes Status: Acute Qualifiers: Congestive heart failure type: combined Congestive heart failure chronicity: acute on chronic Qualified Description: Congestive heart failure , NYHA class 3, acute on chronic, combined Qualifier Code(s): (I50.43) Acute on chronic combined systolic (congestive) and diastolic (congestive) heart failure (3) HTN (hypertension) Current Visit: Yes Status: Acute Qualifiers: Hypertension type: essential hypertension Qualified Description: Essential hypertension Qualifier Code(s): (I10) Essential (primary) hypertension (4) Hypothyroid Current Visit: Yes Status: Acute Qualifiers: Hypothyroidism type: acquired Qualified Description: Acquired hypothyroidism Qualifier Code(s): (E03.9) Hypothyroidism, unspecified (5) Obesity (BMI 30-39.9) Current Visit: Yes Status: Acute (6) Urinary incontinence Current Visit: Yes Status: Acute Qualifiers: Urinary Incontinence type: unspecified incontinence Qualified Description: Urinary incontinence, unspecified type Qualifier Code(s): ( R32) Unspecified urinary incontinence (7) Coronary artery disease Current Visit: Yes Status: Acute Qualifiers: Coronary Disease-Associated Artery/Lesion type: [place] artery [place] vs. transplanted heart: [place] heart Associated angina: without angina Qualified Description: Coronary artery disease involving [place] coronary artery of [place] heart without angina pectoris Qualifier Code(s): (I25.10) Atherosclerotic heart disease of [place] coronary artery without angina pectoris (8) Chronic obstructive lung disease Current Visit: Yes Status: Acute (9) Atrial fibrillation Current Visit: Yes Status: Acute Qualifiers: Atrial fibrillation type: paroxysmal Qualified Description: Paroxysmal atrial fibrillation Qualifier Code(s): (I48.0) Paroxysmal atrial fibrillation - Assessment / Plan Additional Assessment/Plan Details: I was able to obtain records from [facility], and the patient has known coronary artery disease with a 50% lesion in her LAD as of June 2016. It was chosen to do medical management as she was not a candidate for stent based on the size of the lesion. The patient at that time also had atrial fibrillation which is where she was placed on eliquis Tying this altogether, possible that the increase in Coreg just did not settle well with her lung disease, and perhaps that's why she is more short of breath, but interestingly as we improved her diuresis and her chest pain and discomfort overall improved significantly, she then subsequently developed cough and fever and has early infiltrates on CT scan. I'm treating for pneumonia/COPD exacerbation. Continue antibiotics and steroids, day 2. Reduce Lasix to 40 mg by mouth twice a day. Continue off the spironolactone. Discontinue Hardin catheter. Order PT and OT. Check labs in a.m. The patient overall will need a 7 day course of antibiotics and tapered steroids on a fairly quick basis. Get an echocardiogram in the morning as well. I would like to reassess the ejection fraction. The patient would do much better I think if she could tolerate her CPAP therapy as well. That being said, on her heart catheterization in June 2016, she did not have overwhelming pulmonary hypertension.
[2017-03-20] MEDS: AMITRIPTYLINE 25 MG TABLET PO SCH (20:38)
[2017-03-20] MEDS: Simvastatin Tab 20 MG TAB PO SCH (20:39)
[2017-03-20] MEDS: NORMAL SALINE 10 ML SYRINGE FLUSH IVP PRN (21:32)
[2017-03-20] MEDS: cefTRIAXone Inj 2 GM in Sodium Chloride 0.9% 100 ML IV SCH (21:32)
[2017-03-21] MEDS: LEVOTHYROXINE 100 MCG TABLET PO SCH (05:15)
[2017-03-21 05:42] LABS: BASOPHILS # (AUTO) 0.01 10*3/UL; BASOPHILS % (AUTO) 0.1 % (0-1); EOSINOPHILS # (AUTO) 0 10*3/UL; EOSINOPHILS % (AUTO) 0 % (0-8); HEMATOCRIT 34.6 % (37.0-47.0); MEAN CORPUSCULAR HGB CONC 31.8 g/dL (33-37); MEAN CORPUSCULAR VOLUME 94.3 FL (81-99); MEAN PLATELET VOLUME 10.8 FL (7.4-12.2); MONOCYTES # (AUTO) 1.09 10*3/UL (0.3-0.8); MONOCYTES % (AUTO) 9.3 % (5-15); NEUTROPHILS # (AUTO) 9.61 10*3/UL; NEUTROPHILS % (AUTO) 81.6 % (50-80); RED BLOOD COUNT 3.67 10^6/uL (4.20-5.40)
[2017-03-21 05:44] LABS: PLATELET MORPHOLOGY COMMENT NORMAL MORPHOLOGY (NORM); RBC MORPHOLOGY COMMENT NORMAL MORPHOLOGY (NORM); WBC MORPHOLOGY COMMENT NORMAL MORPHOLOGY (NORM)
[2017-03-21 05:52] LABS: BLOOD UREA NITROGEN 70 mg/dL (7-22); BUN/CREATININE RATIO 46.66 (6-20); CALCIUM 8.4 mg/dL (8.7-10.7)
[2017-03-21] MEDS: IPRATROPIUM/ALBUTEROL SULFATE 3 ML NEB NEB SCH ×2 (07:12→11:32)
[2017-03-21] MEDS: TIOTROPIUM BROMIDE 18 MCG CAPSULE INH SCH (07:14)
[2017-03-21] MEDS: FLUTICASONE/SALMETEROL 250/50 UD INHALER INH SCH ×2 (07:14→19:01)
[2017-03-21] MEDS: FUROSEMIDE 40 MG TABLET PO SCH ×2 (07:38→12:03)
--- NOTE | 2017-03-21 07:43 | EKG ---
[address] [place] [address] Measurements Intervals [place] Rate: 47 P: 54 RI: 159 QRS: -47 QRSD: 164 T: 81 QT: 490 QTc: 454 Interpretive Statements SINUS BRADYCARDIA MARKED LEFT AXIS DEVIATION [QRS AXIS < -30] LEFT BUNDLE BRANCH BLOCK Compared to ECG 03/18/2017 12:42:19 Sinus rhythm no longer present Electronically Signed On 03-21-17 16:28:16 MDT by Raul Couch [email or web address]
[2017-03-21] MEDS: CARVEDILOL 12.5 MG TABLET PO SCH ×2 (09:38→21:50)
[2017-03-21] MEDS: FLUTICASONE PROPIONATE 16 GRAM (120 SPRAYS / BOTTLE) ENOS SCH ×2 (09:38→23:31)
[2017-03-21] MEDS: predniSONE Tab 20 MG TAB PO SCH (09:38)
[2017-03-21] MEDS: BENZONATATE 100 MG CAPSULE PO SCH ×3 (09:40→21:51)
[2017-03-21] MEDS: Oxybutynin ER Tab 5 MG TAB PO SCH ×2 (09:40→21:51)
[2017-03-21] MEDS: LORATADINE 10 MG TABLET PO SCH (09:40)
[2017-03-21] MEDS: Montelukast Tab 10 MG TAB PO SCH (09:40)
[2017-03-21] MEDS: Apixaban 5 MG TABLET PO SCH ×2 (09:41→21:50)
[2017-03-21] MEDS: LISINOPRIL 5 MG TABLET PO SCH (09:55)
--- NOTE | 2017-03-21 15:03 | PDOC(PROG) ---
Date and Time of Service: 03/21/2017, 1504 Interval History: Cough is productive, green phlegm. Chest pain is reduced significantly, and is tender with palpation more right sided now and left-sided chest pain is completely resolved. Feels less congested overall. Feels like her heart failure has improved significantly. No fevers. Patient had an episode of bradycardia in the 40s (high 40s), and I think this is all attributable to her Coreg. We'll keep the Coreg at 6.25 mg, and ejection fraction on echocardiogram today was 45-50%. Awaiting official read. Stop supplemental potassium as well. Overall, I told the patient I think that her congestive heart failure is exacerbated in settings where she develops worsened lung infections and COPD exacerbations. She may have early developing pneumonia based on CT scan. Objective : Data - Labs CBC and BMP: 03/21/17 04:05 03/21/17 04:05 Labs - Last 24 Hours: Laboratory Results 03/21/17 03/21/17 Range/Units 04:05 07:41 WBC 11.77 H (4.8-10.8) 10^3/uL RBC 3.67 L (4.20-5.40) 10^6/uL Hgb 11.0 L (12.0-16.0) g/dL Hct 34.6 L (37.0-47.0) % MCV 94.3 (81-99) FL MCH 30.0 (27-31) PG MCHC 31.8 L (33-37) g/dL RDW Std Deviation 45.5 (39-50) fL RDW Coeff of Catarino 13.7 (11.5-14.5) % Plt Count 295 (140-350) 10*3/uL MPV 10.8 (7.4-12.2) FL Immature Gran % (Auto) 1.4 (0-5) % Neut % (Auto) 81.6 H (50-80) % Lymph % (Auto) 7.6 L (10-50) % Wayne % (Auto) 9.3 (5-15) % Eos % (Auto) 0 (0-8) % Baso % (Auto) 0.1 (0-1) % Immature Gran # (Auto) 0.16 10*3/UL Neut # (Auto) 9.61 10*3/UL Lymph # (Auto) 0.90 10*3/uL Wayne # (Auto) 1.09 H (0.3-0.8) 10*3/UL Eos # (Auto) 0 10*3/UL Baso # (Auto) 0.01 10*3/UL WBC Morphology Comment Normal morphology (NORM) Plt Morphology Comment Normal morphology (NORM) RBC Morph Comment Normal morphology (NORM) Sodium 137 (135-145) meq/L Potassium 5.5 H (3.8-5.2) meq/L Chloride 105 (98-112) meq/L Carbon Dioxide 23 (23-33) meq/L Anion Gap 9 (5-20) BUN 70 H (7-22) mg/dL Creatinine 1.5 H (0.50-1.20) mg/dL Estimated GFR Product Development Assistant BUN/Creatinine Ratio 46.66 H (6-20) Glucose 131 H (78-110) mg/dL Calculated Osmolality 306.0 H (267-292) mOsm/kg Calcium 8.4 L (8.7-10.7) mg/dL Troponin I < 0.012 (< 0.040) ng/mL NT-Pro-B Natriuret Pep 2120 H (0-450) PG/ML - Imaging Ultrasound Status: Other (Echocardiogram done, results pending.) Objective : Exam - General General Appearance: No Acute Distress, Cooperative - Eye Eye Exam: No Scleral Icterus - Respiratory Respiratory Exam: Breathing Non Labored, Coarse Breath Sounds - Cardiovascular Cardiovascular Exam: RRR, No Murmur, No Clicks, No Gallops, No Rubs, No JVD Additional Cardiovascular Details: Chest pain reproducible over sternum with palpation. - GI/Abdominal GI/Abdominal Exam: Normal Bowel Sounds, Non Tender, Non Distended, Soft - Extremities Extremities Exam: No Clubbing Present, No Edema Present, No Cyanosis Present - Neurological Neurological Exam: Alert, Oriented x 3, No Facial Droop, Speech Intact / Clear, Moves All Extremities Equally Assessment and Plan - Patient Problems (1) COPD exacerbation Current Visit: Yes Status: Acute Comment: Could be early developing pneumonia per CT scan. On Rocephin and steroids and breathing therapies when necessary. I stopped doing nebs and switched over to Spiriva to see if that helps the patient get a little more relief as well. Oxygen as necessary. May need daytime oxygen. (2) CHF (congestive heart failure), NYHA class III Current Visit: Yes Status: Acute Comment: Overall, I think better symptomatically. BNP is increased though. I think this gets worse with decompensation from her COPD and would probably improve if we can get the patient to tolerate CPAP in some fashion. Obstructive sleep apnea probably plays into this. However, during heart catheterization in June 2016, right heart failure was not a significant issue. Qualifiers: Congestive heart failure type: combined Congestive heart failure chronicity: chronic Qualified Description: Congestive heart failure, NYHA class 3, chronic, combined Qualifier Code(s): (I50.42) Chronic combined systolic (congestive) and diastolic (congestive) heart failure (3) HTN (hypertension) Current Visit: Yes Status: Acute Qualifiers: Hypertension type: essential hypertension Qualified Description: Essential hypertension Qualifier Code(s): (I10) Essential (primary) hypertension (4) Hypothyroid Current Visit: Yes Status: Acute Qualifiers: Hypothyroidism type: acquired Qualified Description: Acquired hypothyroidism Qualifier Code(s): (E03.9) Hypothyroidism, unspecified (5) Obesity (BMI 30-39.9) Current Visit: Yes Status: Acute (6) Urinary incontinence Current Visit: Yes Status: Acute Qualifiers: Urinary Incontinence type: unspecified incontinence Qualified Description: Urinary incontinence, unspecified type Qualifier Code(s): ( R32) Unspecified urinary incontinence (7) Coronary artery disease Current Visit: Yes Status: Acute Qualifiers: Coronary Disease-Associated Artery/Lesion type: [place] artery [place] vs. transplanted heart: [place] heart Associated angina: without angina Qualified Description: Coronary artery disease involving [place] coronary artery of [place] heart without angina pectoris Qualifier Code(s): (I25.10) Atherosclerotic heart disease of [place] coronary artery without angina pectoris (8) Chronic obstructive lung disease Current Visit: Yes Status: Acute (9) Atrial fibrillation Current Visit: Yes Status: Acute Qualifiers: Atrial fibrillation type: paroxysmal Qualified Description: Paroxysmal atrial fibrillation Qualifier Code(s): (I48.0) Paroxysmal atrial fibrillation - Assessment / Plan Additional Assessment/Plan Details: Keep Coreg at 6.25 mg, continue SYDNIE inhibitor at 2.5 mg. Stop supplemental potassium. Recheck basic metabolic panel tomorrow. Recheck CBC with differential tomorrow. Continue Rocephin and prednisone. On antibiotics, day 3 of 7. PT and OT. I think at this point we can stop telemetry monitoring. Bradycardia would be expected on the beta tripp. Trial Spiriva. May need oxygen at daytime as well. There are apparently some new device is treating sleep apnea. I think the patient would benefit from a sleep apnea device that she can tolerate.
[2017-03-21] MEDS: HYDROcodone-APAP 5 MG -325 MG TABLET PO PRN ×2 (18:03→23:33)
[2017-03-21] MEDS: ALBUTEROL SULFATE 2.5 MG/3 ML NEB PRN (19:01)
[2017-03-21] MEDS: cefTRIAXone Inj 2 GM in Sodium Chloride 0.9% 100 ML IV SCH (21:51)
[2017-03-21] MEDS: Simvastatin Tab 20 MG TAB PO SCH (21:51)
[2017-03-21] MEDS: AMITRIPTYLINE 25 MG TABLET PO SCH (21:51)
[2017-03-21] MEDS: NORMAL SALINE 10 ML SYRINGE FLUSH IVP PRN (21:52)
[2017-03-22 05:06] LABS: HEMATOCRIT 36.5 % (37.0-47.0); HEMOGLOBIN 11.8 g/dL (12.0-16.0); MEAN CORPUSCULAR HEMOGLOBIN 30.3 PG (27-31); MEAN CORPUSCULAR HGB CONC 32.3 g/dL (33-37); MEAN CORPUSCULAR VOLUME 93.8 FL (81-99); MEAN PLATELET VOLUME 10.5 FL (7.4-12.2); RED BLOOD COUNT 3.89 10^6/uL (4.20-5.40)
[2017-03-22 05:21] LABS: BLOOD UREA NITROGEN 69 mg/dL (7-22); BUN/CREATININE RATIO 49.28 (6-20); CALCIUM 8.6 mg/dL (8.7-10.7)
[2017-03-22] MEDS: HYDROcodone-APAP 5 MG -325 MG TABLET PO PRN ×2 (05:24→19:39)
[2017-03-22] MEDS: LEVOTHYROXINE 100 MCG TABLET PO SCH (05:25)
[2017-03-22 05:29] LABS: BAND NEUTROPHILS % 5 % (0-10); BASOPHILS % (MANUAL) 0 % (0-1); EOSINOPHILS % (MANUAL) 0 % (0-8); LYMPHOCYTES % (MANUAL) 13 % (10-50); MONOCYTES % (MANUAL) 5 % (0-12); NEUTROPHILS % (MANUAL) 77 % (50-80); PLATELET MORPHOLOGY COMMENT NORMAL MORPHOLOGY (NORM); RBC MORPHOLOGY COMMENT NORMAL MORPHOLOGY (NORM); WBC MORPHOLOGY COMMENT NORMAL MORPHOLOGY (NORM)
[2017-03-22] MEDS: FUROSEMIDE 40 MG TABLET PO SCH ×2 (06:46→12:53)
[2017-03-22] MEDS: FLUTICASONE/SALMETEROL 250/50 UD INHALER INH SCH ×2 (07:00→18:52)
[2017-03-22] MEDS: TIOTROPIUM BROMIDE 18 MCG CAPSULE INH SCH (07:00)
[2017-03-22] MEDS: FLUTICASONE PROPIONATE 16 GRAM (120 SPRAYS / BOTTLE) ENOS SCH ×2 (09:01→22:07)
[2017-03-22] MEDS: Apixaban 5 MG TABLET PO SCH ×2 (09:02→20:32)
[2017-03-22] MEDS: BENZONATATE 100 MG CAPSULE PO SCH ×3 (09:02→20:31)
[2017-03-22] MEDS: predniSONE Tab 20 MG TAB PO SCH (09:02)
[2017-03-22] MEDS: LORATADINE 10 MG TABLET PO SCH (09:02)
[2017-03-22] MEDS: Oxybutynin ER Tab 5 MG TAB PO SCH ×2 (09:02→20:31)
[2017-03-22] MEDS: Montelukast Tab 10 MG TAB PO SCH (09:03)
[2017-03-22] MEDS: CARVEDILOL 12.5 MG TABLET PO SCH ×2 (09:03→20:32)
[2017-03-22] MEDS: LISINOPRIL 5 MG TABLET PO SCH (09:05)
--- NOTE | 2017-03-22 09:14 | PDOC(PROG) ---
Date and Time of Service: 03/22/2017 9:11 AM Interval History: Subjective Patient she said feels a 75% better compared to when she came in, she came in with shortness of breath, she had some cough and she had some pain in the right side of the chest posteriorly that's also improved. There was a recent adjustment to her medication she said by Dr. So. she used to be on Lasix twice a day 40 mg he cut it to 40 mg once a day and increased the dosage of the Coreg and after that she started to have symptoms and because of that she came into the hospital. She was admitted both for CHF exacerbation addition to COPD with possible pneumonia. As I said she is making improvement. There is no swelling in her legs. Normally she is on oxygen at night at 3 L sometimes she uses it during the day. Objective : Data - Labs CBC and BMP: 03/22/17 04:20 03/22/17 04:20 Labs - Last 24 Hours: Laboratory Results 03/22/17 Range/Units 04:20 WBC 10.52 (4.8-10.8) 10^3/uL RBC 3.89 L (4.20-5.40) 10^6/uL Hgb 11.8 L (12.0-16.0) g/dL Hct 36.5 L (37.0-47.0) % MCV 93.8 (81-99) FL MCH 30.3 (27-31) PG MCHC 32.3 L (33-37) g/dL RDW Std Deviation 46.1 (39-50) fL RDW Coeff of Catarino 13.7 (11.5-14.5) % Plt Count 330 (140-350) 10*3/uL MPV 10.5 (7.4-12.2) FL Neutrophils % (Manual) 77 (50-80) % Band Neutrophils % 5 (0-10) % Lymphocytes % (Manual) 13 (10-50) % Monocytes % (Manual) 5 (0-12) % Eosinophils % (Manual) 0 (0-8) % Basophils % (Manual) 0 (0-1) % Metamyelocytes % Not Reportable Myelocytes % Not Reportable Promyelocytes % Not Reportable Blast Cells Not Reportable WBC Morphology Comment Normal morphology (NORM) Plt Morphology Comment Normal morphology (NORM) RBC Morph Comment Normal morphology (NORM) Sodium 137 (135-145) meq/L Potassium 5.2 (3.8-5.2) meq/L Chloride 104 (98-112) meq/L Carbon Dioxide 25 (23-33) meq/L Anion Gap 8 (5-20) BUN 69 H (7-22) mg/dL Creatinine 1.4 H (0.50-1.20) mg/dL Estimated GFR Cna Instructor BUN/Creatinine Ratio 49.28 H (6-20) Glucose 122 H (78-110) mg/dL Calculated Osmolality 304.0 H (267-292) mOsm/kg Calcium 8.6 L (8.7-10.7) mg/dL Objective : Exam - General General Appearance: No Acute Distress, Cooperative, Obese - Head Head Exam: Normal Inspection, Atraumatic - Eye Eye Exam: Normal Appearance - ENT ENT Exam: Normal Exam - Neck Neck Exam: Normal Inspection - Respiratory Respiratory Exam: Clear to Auscultation - Bilaterally - Cardiovascular Cardiovascular Exam: RRR - GI/Abdominal GI/Abdominal Exam: Normal Bowel Sounds, Non Tender, Non Distended, Soft - Rectal Rectal Exam: Deferred - External Exam: Deferred - Extremities Extremities Exam: Normal Inspection - Back Back Exam: Normal Inspection - Neurological Neurological Exam: Alert, Oriented x 3, CN II-XII Intact - Psychiatric Psychiatric Exam: Normal Affect - Integumentary Integumentary Exam: Normal Color Assessment and Plan - Patient Problems (1) CHF (congestive heart failure), NYHA class III Current Visit: Yes Status: Acute Comment: This is seen to be improved symptomatically, continue Lasix at the current dosage. We lowered the dosage of the Coreg to 6.25 twice a day continue. Spironolactone was withheld because of her high potassium. Qualifiers: Congestive heart failure type: combined Congestive heart failure chronicity: chronic Qualified Description: Congestive heart failure, NYHA class 3, chronic, combined Qualifier Code(s): (I50.42) Chronic combined systolic (congestive) and diastolic (congestive) heart failure (2) COPD exacerbation Current Visit: Yes Status: Acute Comment: This been treated with the prednisone and antibiotics. will Cut back on the dosage of the prednisone and switched the antibiotic to oral. I think will watch her another day if things stable by tomorrow maybe home tomorrow (3) HTN (hypertension) Current Visit: Yes Status: Acute Comment: Same medications Qualifiers: Hypertension type: essential hypertension Qualified Description: Essential hypertension Qualifier Code(s): (I10) Essential (primary) hypertension (4) Atrial fibrillation Current Visit: Yes Status: Acute Comment: She has history of paroxysmal A. fib, continue Eliquis. Qualifiers: Atrial fibrillation type: paroxysmal Qualified Description: Paroxysmal atrial fibrillation Qualifier Code(s): (I48.0) Paroxysmal atrial fibrillation (5) Hypothyroid Current Visit: Yes Status: Acute Comment: Same med Qualifiers: Hypothyroidism type: acquired Qualified Description: Acquired hypothyroidism Qualifier Code(s): (E03.9) Hypothyroidism, unspecified
--- NOTE | 2017-03-22 11:45 | PTI REPORT ---
Thank you for the referral of Jackie Claudio. She was seen on 03/21/17 for an inpatient evaluation secondary to shortness of breath. SUBJECTIVE: The patient is a 76-year-old female. The patient reports she was admitted Tuesday due to having shortness of breath complaints since the . She contacted her cut off machine helper who recommended she go to the emergency room from where she was admitted. She states that at home she was doing everything independently; although she does have a ramp so she doesn't have to go upstairs. Her biggest limiting factor is her shortness of breath. She denies using any type of walker or assistive device or being on oxygen while at home. As of now, the patient reports she is feeling a little bit better. PAST MEDICAL HISTORY: Past medical history can be found in the patient's medical record. OBJECTIVE FINDINGS: Bed mobility/Transfers: The patient was able to perform all bed mobility and transfers with stand by assistance. Ambulation: The patient was able to ambulate within her room without the use of an assistive device while independently keeping track of her oxygen tubing for all toileting ADLs. She was able to ambulate up to 50 feet before requiring a standing rest break while using gait belt and hand railing only with four liters of continuous oxygen via nasal cannula. Strength: Bilateral lower extremity strength at this time is 4/5. Range of motion: Bilateral lower extremity range of motion is within normal limits. ASSESSMENT: Problem List: Shortness of breath with functional activity and ambulation Decreased strength Physical Therapy Goals: To be met by discharge from inpatient: Patient will demonstrate bilateral lower extremity strength of at least 4+/5 or greater. Patient will be able to ambulate up to 300 feet independently while on oxygen for community and household ambulation. TREATMENT PLAN: Patient will be seen B.I.D during the week and one time per day over the weekend as an inpatient to address the above goals and objectives. INITIAL TREATMENT: Treatment today consisted of the initial evaluation followed by the patient ambulating 4 sets of 50 feet with gait belt, contact guard assistance, four liters of oxygen via nasal cannula continuously, and hand hold assistance of the railing where needed. She required between 30 seconds to one minute of pursed lipped breathing for catching her breath. OZZIE
--- NOTE | 2017-03-22 12:35 | OTI REPORT ---
Thank you for the referral of Jackie González. She was seen on 03/21/17 for an occupational therapy inpatient evaluation secondary to shortness of breath. SUBJECTIVE: The patient is a 76-year-old female who has had increased medical concerns and shortness of breath the last year and a half. She says that recently she has been placed on three liters of oxygen at night but has not had it during the day ; however, today the patient is on three liters. The patient lives approximately five miles outside of [place] with her . She states recently she fell outside in her flower garden but typically does not have any falls. She was admitted to the hospital on 03/18/17. The patient reports that they just built a single story home. They have steps within the home and a ramp out front. The patient states that since her fall she cannot feel the button from her lap band surgery. The patient has chronic obstructive lung disease, hypertension, hypothyroidism, and obesity. She is concerned because she keeps gaining weight, even with the lap band. In the patient's home, she has a walk in shower. She typically is independent with walking and does not use assistive devices; however, she says she has a few canes at home. Prior to admission the patient reports she does the laundry, she and her both do the cooking, the cleaning, and shopping for groceries. She does drive but does not drive at night. She states that her balance is really bad on uneven surfaces such as grass. The patient wants to get off of the oxygen during the day and wants to improve her balance and abilities. PAST MEDICAL HISTORY: Past medical history can be found in the patient's medical record. OBJECTIVE FINDINGS: General observations: The patient does lose her breath quite frequently and has a lot of balance issues. The patient was alert and oriented x4. Range of motion: The patient had shoulder range of motion that is within functional limits on the left. She had 90 degrees of shoulder motion on the right. She says that she has the most trouble with her right shoulder as she did have surgery on this several years back and it has just never improved. Strength: Strength in the right shoulder is 2+/5 and strength in the left shoulder is 3+/5. Elbow flexion/extension was 4/5 and wrist flexion extension was 4/5. Activities of daily living: Today the patient was able to doff her socks independently. She was able to don them; however, she says at home she does use a sock aide. She does not use the district attorney for dressing tasks. Bed mobility: The patient was able to come from supine to sit independently. Transfers: The patient was able to transfer from sit to stand with stand by assist. Ambulation: We did do some functional ambulation within the room and outside in the hallway. The patient did not want to use an assistive device; however, she did grab onto the lewis throughout this time as well as the therapist's arm. We did talk about using a cane for the uneven surfaces. She says the has them but she does not want to use them. ASSESSMENT: Problem List: Patient would benefit from education on energy conservation techniques Decreased ability to perform activities of daily living Decreased strength Short-Term Goals: To be met by discharge from inpatient: Patient will be able to state three energy conservation techniques that she will implement throughout her day. Patient will improve upper extremity strength to 4+/5 on the left and 3+/5 on the right. Patient will be able to complete all functional transfers safely and independently with or without use of an assistive device. Patient will be able to complete a toilet transfer safely and independently. Long-Term Goals: To be met following discharge from inpatient: Patient will be discharged home demonstrating independence and safety with all functional ADLs and transfers. TREATMENT PLAN: Patient will be seen B.I.D during the week and one time per day over the weekend as an inpatient to address the above goals and objectives. INITIAL TREATMENT: Treatment today consisted of the initial evaluation followed by the patient completing functional ambulation in the room and around the hallway followed by upper extremity range of motion and strengthening activities with red theraband for biceps, triceps, and internal/external rotation. MTDD
--- NOTE | 2017-03-22 13:23 | OT.PROG ---
Progress Note Progress Note: S: pt stated she was fine in her gown, and she did not want to put on any shorts. She also stated she does not walk with walker. O: pt was seen in her room and completed entire transfer to therapy with no breaks. She then completed time on the Nu step before completing UE exercises with RTB in all ranges x15 with BUE. PT returned pt to her room upon completion of there tx. A: pt displayed good activity tolerance by walking entire way to therapy. Continue to strengthen and monitor ADL's. P: continue per plan of care.
--- NOTE | 2017-03-22 17:19 | PT.PROG ---
Progress Note Progress Note: S. Patient stated that she is tired this morning. O. Patient ambulated 175 feet to the therapy gym where she used the nu-step x 18 minutes then performed seated exercises in the form of; heel toe raises, marches, long arc quads, ball squeezes, resisted knee flexion, clamshells, sit to stands all x 10 bilaterally. Patient ambulated 175 feet back to her room where she was left in her chair with alarm and call light. A. Patient tolerated exercises fair, she was very fatigued and required frequent rest breaks to recover. Patient would continue to benefit from skilled therapy at this time to increase strength and mobility. P. Continue POC.
[2017-03-22] MEDS: Simvastatin Tab 20 MG TAB PO SCH (20:31)
[2017-03-22] MEDS: AMITRIPTYLINE 25 MG TABLET PO SCH (20:31)
[2017-03-22] MEDS: ALBUTEROL SULFATE 2.5 MG/3 ML NEB PRN (21:05)
[2017-03-22] MEDS: CEFDINIR 300 MG CAPSULE PO SCH (22:07)
[2017-03-23] MEDS: HYDROcodone-APAP 5 MG -325 MG TABLET PO PRN (04:46)
[2017-03-23] MEDS: LEVOTHYROXINE 100 MCG TABLET PO SCH (04:47)
[2017-03-23 05:23] LABS: BUN/CREATININE RATIO 56.66 (6-20); CALCIUM 8.5 mg/dL (8.7-10.7)
[2017-03-23 05:38] LABS: FREE T4 (FREE THYROXINE) 1.49 ng/dL (0.93-1.71)
[2017-03-23] MEDS: FLUTICASONE/SALMETEROL 250/50 UD INHALER INH SCH (06:53)
[2017-03-23] MEDS: TIOTROPIUM BROMIDE 18 MCG CAPSULE INH SCH (06:53)
[2017-03-23] MEDS: FUROSEMIDE 40 MG TABLET PO SCH ×2 (07:16→14:12)
--- NOTE | 2017-03-23 07:40 | PDOC(PROG) ---
Date and Time of Service: 03/23/2017 7:38 AM Interval History: Subjective She said she is feeling tired but otherwise she said she made improvement, her breathing is better denying other symptoms. Had some cough no significant phlegm production Objective : Data - Labs CBC and BMP: 03/22/17 04:20 03/23/17 04:32 Labs - Last 24 Hours: Laboratory Results 03/23/17 Range/Units 04:32 Sodium 137 (135-145) meq/L Potassium 4.9 (3.8-5.2) meq/L Chloride 102 (98-112) meq/L Carbon Dioxide 27 (23-33) meq/L Anion Gap 8 (5-20) BUN 68 H (7-22) mg/dL Creatinine 1.2 (0.50-1.20) mg/dL Estimated GFR (>60 ml/min/1.73m(2)) BUN/Creatinine Ratio 56.66 H (6-20) Glucose 101 (78-110) mg/dL Calculated Osmolality 303.0 H (267-292) mOsm/kg Calcium 8.5 L (8.7-10.7) mg/dL TSH < 0.015 L (0.2700-4.2000) uIU/mL Free T4 1.49 (0.93-1.71) ng/dL Objective : Exam - General General Appearance: No Acute Distress, Cooperative, Obese - Head Head Exam: Normal Inspection, Atraumatic - Eye Eye Exam: Normal Appearance - ENT ENT Exam: Normal Exam - Neck Neck Exam: Normal Inspection - Respiratory Additional Respiratory Exam Details: Decreased air entry occasional wheeze heard - Cardiovascular Cardiovascular Exam: RRR - GI/Abdominal GI/Abdominal Exam: Normal Bowel Sounds, Non Tender, Non Distended, Soft - Rectal Rectal Exam: Deferred - External Exam: Deferred - Extremities Extremities Exam: Normal Inspection - Back Back Exam: Normal Inspection - Neurological Neurological Exam: Alert, Oriented x 3, CN II-XII Intact, No Facial Droop, Moves All Extremities Equally - Psychiatric Psychiatric Exam: Normal Affect Assessment and Plan - Patient Problems (1) CHF (congestive heart failure), NYHA class III Current Visit: Yes Status: Acute Comment: Seem to be improved continue same medications. I'll check on her later on in the morning if she still remains fine I think will probably we'll discharge her home Qualifiers: Congestive heart failure type: combined Congestive heart failure chronicity: chronic Qualified Description: Congestive heart failure, NYHA class 3, chronic, combined Qualifier Code(s): (I50.42) Chronic combined systolic (congestive) and diastolic (congestive) heart failure (2) COPD exacerbation Current Visit: Yes Status: Acute Comment: Continue prednisone and steroid and breathing treatment. If we decided to discharge I will discharge her on tapering dosage of prednisone. (3) HTN (hypertension) Current Visit: Yes Status: Acute Comment: Same med Qualifiers: Hypertension type: essential hypertension Qualified Description: Essential hypertension Qualifier Code(s): (I10) Essential (primary) hypertension (4) Atrial fibrillation Current Visit: Yes Status: Acute Comment: Same medications Qualifiers: Atrial fibrillation type: paroxysmal Qualified Description: Paroxysmal atrial fibrillation Qualifier Code(s): (I48.0) Paroxysmal atrial fibrillation (5) Hypothyroid Current Visit: Yes Status: Acute Comment: Same med. TSH is suppressed but I think this is more sick euthyroid syndrome Qualifiers: Hypothyroidism type: acquired Qualified Description: Acquired hypothyroidism Qualifier Code(s): (E03.9) Hypothyroidism, unspecified
[2017-03-23] MEDS: FLUTICASONE PROPIONATE 16 GRAM (120 SPRAYS / BOTTLE) ENOS SCH (08:24)
[2017-03-23] MEDS: BENZONATATE 100 MG CAPSULE PO SCH (08:24)
[2017-03-23] MEDS: Apixaban 5 MG TABLET PO SCH (08:24)
[2017-03-23] MEDS: Oxybutynin ER Tab 5 MG TAB PO SCH (08:25)
[2017-03-23] MEDS: CEFDINIR 300 MG CAPSULE PO SCH (08:25)
[2017-03-23] MEDS: CARVEDILOL 12.5 MG TABLET PO SCH (08:25)
[2017-03-23] MEDS: Montelukast Tab 10 MG TAB PO SCH (08:25)
[2017-03-23] MEDS: LORATADINE 10 MG TABLET PO SCH (08:26)
[2017-03-23] MEDS: LISINOPRIL 5 MG TABLET PO SCH (08:44)
[2017-03-23] MEDS ORDERED: predniSONE Tab 20 MG TAB PO SCH (09:00)
[2017-03-23] MEDS ORDERED: predniSONE Tab 10 MG, predniSONE Tab 20 MG PO SCH ×2 (09:00)
--- NOTE | 2017-03-23 11:19 | PT.PROG ---
Progress Note Progress Note: S. Patient stated that she is feeling much better today. O. Patient ambulated 175 feet to the therapy gym where she performed exercises in the form of; heel toe raises, marches, long arc quads, ball squeezes, clamshells, resisted knee flexion, sit to stand all x 10 bilaterally. Patient used the nu-step x 20 minutes then was left with OT for further therapy. A. Patient tolerated exercises well today, she was able to ambulate with SBG assist. Patient continues to make gains with strength and endurance. Patient would continue to benefit from skilled therapy in Outpatient. P. continue POC.
[2017-03-23 11:25] VITALS: RESP 20; TEMP 97.8
--- NOTE | 2017-03-23 12:53 | DCSUMMARY ---
Hospitalization Summary Admit Date: 03/18/17 Discharge Date: 03/23/17 Hospital Course: Discharge diagnoses 1. COPD exacerbation with possible pneumonia 2. History of congestive heart failure 3. COPD 4. History of obstructive sleep apnea on oxygen 5. History of arthritis 6. History of off hypothyroidism 7. History of lap band surgery 8. History of paroxysmal A. fib Hospital course This is 76 years old female with medical history significant for history of congestive heart failure secondary to systolic dysfunction, history of atrial fibrillation, history of COPD, history of sleep apnea on oxygen who came into the hospital because of shortness of breath. Apparently there was a recent change in medication when Dr. So the lock plater cut back on the dosage of her Lasix and increased her Coreg. Because of the symptoms of shortness of breath she was admitted to the hospital by Dr. Lazcano please see his note. Initially she was diuresed. However she had some fever ,cough a CT chest showed right middle lobe and bibasilar opacities which are most prominent at the costophrenic and left costophrenic angles and airway thickening. Finding may represent atelectasis versus early infiltrate. there was a concern that she may have a COPD exacerbation as a result of an infection so she was put on antibiotics and steroid. I saw her later on during hospital stay she was making progress. We kept her in the hospital and on the day of discharge she was doing better she was walking with physical therapy we thought that she can be discharged home on tapering dose of steroid and antibiotics. We did modify her medication and lowered the dosage of the Coreg from 12.5 to 6.25 twice a day. we also increased the Lasix back to 40 mg twice a day from 40 mg once a day. She'll need follow-up with her primary and with her lock plater as an outpatient. Laboratory Results 03/18/17 03/18/17 03/18/17 Range/Units 13:27 13:30 17:00 WBC 12.38 H (4.8-10.8) 10^3/uL RBC 4.05 L (4.20-5.40) 10^6/uL Hgb 12.5 (12.0-16.0) g/dL Hct 38.6 (37.0-47.0) % MCV 95.3 (81-99) FL MCH 30.9 (27-31) PG MCHC 32.4 L (33-37) g/dL RDW Std Deviation 45.9 (39-50) fL RDW Coeff of Catarino 13.6 (11.5-14.5) % Plt Count 199 (140-350) 10*3/uL MPV 10.3 (7.4-12.2) FL Immature Gran % (Auto) 0.5 (0-5) % Neut % (Auto) 82.1 H (50-80) % Lymph % (Auto) 8.7 L (10-50) % Hancock % (Auto) 8.1 (5-15) % Eos % (Auto) 0.3 (0-8) % Baso % (Auto) 0.3 (0-1) % Immature Gran # (Auto) 0.06 10*3/UL Neut # (Auto) 10.16 10*3/UL Lymph # (Auto) 1.08 10*3/uL Hancock # (Auto) 1.00 H (0.3-0.8) 10*3/UL Eos # (Auto) 0.04 10*3/UL Baso # (Auto) 0.04 10*3/UL Neutrophils % (Manual) (50-80) % Band Neutrophils % (0-10) % Lymphocytes % (Manual) (10-50) % Monocytes % (Manual) (0-12) % Eosinophils % (Manual) (0-8) % Basophils % (Manual) (0-1) % Metamyelocytes % Myelocytes % Promyelocytes % Blast Cells WBC Morphology Comment Normal morphology (NORM) Plt Morphology Comment Normal morphology (NORM) RBC Morph Comment Normal morphology (NORM) PT 12.0 H (9.7-11.4) secs INR 1.16 (0.00-5.90) N/A VBG pH 7.40 (7.32-7.42) VBG pCO2 33 L (45-55) mmHg VBG HCO3 20 L (22-26) mmol/L VBG Base Excess -5 L (-2-2) MMOL/L Sodium 140 (135-145) meq/L Potassium 4.9 (3.8-5.2) meq/L Chloride 103 (98-112) meq/L Carbon Dioxide 24 (23-33) meq/L Anion Gap 13 (5-20) BUN 51 H (7-22) mg/dL Creatinine 1.4 H (0.50-1.20) mg/dL Estimated GFR Outsole Scheduler BUN/Creatinine Ratio 36.42 H (6-20) Glucose 112 H (78-110) mg/dL Calculated Osmolality 304.0 H (267-292) mOsm/kg Calcium 8.8 (8.7-10.7) mg/dL Magnesium 2.1 (1.6-2.4) mg/dL Total Bilirubin 0.9 (0.3-1.2) mg/dL AST 18 (8-39) IU/L ALT 21 (9-52) IU/L Alkaline Phosphatase 84 (38-126) IU/L Troponin I 0.030 0.017 (< 0.040) ng/mL NT-Pro-B Natriuret Pep 1500 H (0-450) PG/ML Total Protein 6.9 (6.1-8.0) g/dL Albumin 3.7 (3.5-4.8) g/dL Globulin 3.2 (2.50-4.10) g/dL Albumin/Globulin Ratio 1.10 L (1.3-2.0) mg/g TSH (0.2700-4.2000) uIU/mL Free T4 (0.93-1.71) ng/dL 03/19/17 03/19/17 03/20/17 Range/Units 05:08 05:15 04:40 WBC 9.18 8.66 (4.8-10.8) 10^3/uL RBC 3.92 L 3.79 L (4.20-5.40) 10^6/uL Hgb 11.9 L 11.6 L (12.0-16.0) g/dL Hct 36.6 L 35.5 L (37.0-47.0) % MCV 93.4 93.7 (81-99) FL MCH 30.4 30.6 (27-31) PG MCHC 32.5 L 32.7 L (33-37) g/dL RDW Std Deviation 45.8 45.5 (39-50) fL RDW Coeff of Catarino 13.7 13.8 (11.5-14.5) % Plt Count 206 251 (140-350) 10*3/uL MPV 10.5 10.2 (7.4-12.2) FL Immature Gran % (Auto) 0.2 0.2 (0-5) % Neut % (Auto) 75.6 88.7 H (50-80) % Lymph % (Auto) 11.7 7.3 L (10-50) % Hancock % (Auto) 10.8 3.6 L (5-15) % Eos % (Auto) 1.5 0 (0-8) % Baso % (Auto) 0.2 0.2 (0-1) % Immature Gran # (Auto) 0.02 0.02 10*3/UL Neut # (Auto) 6.94 7.68 10*3/UL Lymph # (Auto) 1.07 0.63 10*3/uL Hancock # (Auto) 0.99 H 0.31 (0.3-0.8) 10*3/UL Eos # (Auto) 0.14 0 10*3/UL Baso # (Auto) 0.02 0.02 10*3/UL Neutrophils % (Manual) (50-80) % Band Neutrophils % (0-10) % Lymphocytes % (Manual) (10-50) % Monocytes % (Manual) (0-12) % Eosinophils % (Manual) (0-8) % Basophils % (Manual) (0-1) % Metamyelocytes % Myelocytes % Promyelocytes % Blast Cells WBC Morphology Comment Normal morphology Normal morphology (NORM) Plt Morphology Comment Normal morphology Normal morphology (NORM) RBC Morph Comment Normal morphology Normal morphology (NORM) PT (9.7-11.4) secs INR (0.00-5.90) N/A VBG pH 7.41 (7.32-7.42) VBG pCO2 38 L (45-55) mmHg VBG HCO3 24 (22-26) mmol/L VBG Base Excess -1 (-2-2) MMOL/L Sodium 139 137 (135-145) meq/L Potassium 4.3 5.1 (3.8-5.2) meq/L Chloride 105 104 (98-112) meq/L Carbon Dioxide 25 23 (23-33) meq/L Anion Gap 9 10 (5-20) BUN 59 H 63 H (7-22) mg/dL Creatinine 1.5 H 1.5 H (0.50-1.20) mg/dL Estimated GFR Outsole Scheduler Outsole Scheduler BUN/Creatinine Ratio 39.33 H 42.00 H (6-20) Glucose 101 170 H (78-110) mg/dL Calculated Osmolality 304.0 H 305.0 H (267-292) mOsm/kg Calcium 8.9 8.6 L (8.7-10.7) mg/dL Magnesium (1.6-2.4) mg/dL Total Bilirubin (0.3-1.2) mg/dL AST (8-39) IU/L ALT (9-52) IU/L Alkaline Phosphatase (38-126) IU/L Troponin I 0.015 (< 0.040) ng/mL NT-Pro-B Natriuret Pep 1450 H (0-450) PG/ML Total Protein (6.1-8.0) g/dL Albumin (3.5-4.8) g/dL Globulin (2.50-4.10) g/dL Albumin/Globulin Ratio (1.3-2.0) mg/g TSH (0.2700-4.2000) uIU/mL Free T4 (0.93-1.71) ng/dL 03/21/17 03/21/17 03/22/17 Range/Units 04:05 07:41 04:20 WBC 11.77 H 10.52 (4.8-10.8) 10^3/uL RBC 3.67 L 3.89 L (4.20-5.40) 10^6/uL Hgb 11.0 L 11.8 L (12.0-16.0) g/dL Hct 34.6 L 36.5 L (37.0-47.0) % MCV 94.3 93.8 (81-99) FL MCH 30.0 30.3 (27-31) PG MCHC 31.8 L 32.3 L (33-37) g/dL RDW Std Deviation 45.5 46.1 (39-50) fL RDW Coeff of Catarino 13.7 13.7 (11.5-14.5) % Plt Count 295 330 (140-350) 10*3/uL MPV 10.8 10.5 (7.4-12.2) FL Immature Gran % (Auto) 1.4 (0-5) % Neut % (Auto) 81.6 H (50-80) % Lymph % (Auto) 7.6 L (10-50) % Hancock % (Auto) 9.3 (5-15) % Eos % (Auto) 0 (0-8) % Baso % (Auto) 0.1 (0-1) % Immature Gran # (Auto) 0.16 10*3/UL Neut # (Auto) 9.61 10*3/UL Lymph # (Auto) 0.90 10*3/uL Hancock # (Auto) 1.09 H (0.3-0.8) 10*3/UL Eos # (Auto) 0 10*3/UL Baso # (Auto) 0.01 10*3/UL Neutrophils % (Manual) 77 (50-80) % Band Neutrophils % 5 (0-10) % Lymphocytes % (Manual) 13 (10-50) % Monocytes % (Manual) 5 (0-12) % Eosinophils % (Manual) 0 (0-8) % Basophils % (Manual) 0 (0-1) % Metamyelocytes % Not Reportable Myelocytes % Not Reportable Promyelocytes % Not Reportable Blast Cells Not Reportable WBC Morphology Comment Normal morphology Normal morphology (NORM) Plt Morphology Comment Normal morphology Normal morphology (NORM) RBC Morph Comment Normal morphology Normal morphology (NORM) PT (9.7-11.4) secs INR (0.00-5.90) N/A VBG pH (7.32-7.42) VBG pCO2 (45-55) mmHg VBG HCO3 (22-26) mmol/L VBG Base Excess (-2-2) MMOL/L Sodium 137 137 (135-145) meq/L Potassium 5.5 H 5.2 (3.8-5.2) meq/L Chloride 105 104 (98-112) meq/L Carbon Dioxide 23 25 (23-33) meq/L Anion Gap 9 8 (5-20) BUN 70 H 69 H (7-22) mg/dL Creatinine 1.5 H 1.4 H (0.50-1.20) mg/dL Estimated GFR Outsole Scheduler Outsole Scheduler BUN/Creatinine Ratio 46.66 H 49.28 H (6-20) Glucose 131 H 122 H (78-110) mg/dL Calculated Osmolality 306.0 H 304.0 H (267-292) mOsm/kg Calcium 8.4 L 8.6 L (8.7-10.7) mg/dL Magnesium (1.6-2.4) mg/dL Total Bilirubin (0.3-1.2) mg/dL AST (8-39) IU/L ALT (9-52) IU/L Alkaline Phosphatase (38-126) IU/L Troponin I < 0.012 (< 0.040) ng/mL NT-Pro-B Natriuret Pep 2120 H (0-450) PG/ML Total Protein (6.1-8.0) g/dL Albumin (3.5-4.8) g/dL Globulin (2.50-4.10) g/dL Albumin/Globulin Ratio (1.3-2.0) mg/g TSH (0.2700-4.2000) uIU/mL Free T4 (0.93-1.71) ng/dL 03/23/ Range/Units 04:32 WBC (4.8-10.8) 10^3/uL RBC (4.20-5.40) 10^6/uL Hgb (12.0-16.0) g/dL Hct (37.0-47.0) % MCV (81-99) FL MCH (27-31) PG MCHC (33-37) g/dL RDW Std Deviation (39-50) fL RDW Coeff of Catarino (11.5-14.5) % Plt Count (140-350) 10*3/uL MPV (7.4-12.2) FL Immature Gran % (Auto) (0-5) % Neut % (Auto) (50-80) % Lymph % (Auto) (10-50) % Hancock % (Auto) (5-15) % Eos % (Auto) (0-8) % Baso % (Auto) (0-1) % Immature Gran # (Auto) 10*3/UL Neut # (Auto) 10*3/UL Lymph # (Auto) 10*3/uL Hancock # (Auto) (0.3-0.8) 10*3/UL Eos # (Auto) 10*3/UL Baso # (Auto) 10*3/UL Neutrophils % (Manual) (50-80) % Band Neutrophils % (0-10) % Lymphocytes % (Manual) (10-50) % Monocytes % (Manual) (0-12) % Eosinophils % (Manual) (0-8) % Basophils % (Manual) (0-1) % Metamyelocytes % Myelocytes % Promyelocytes % Blast Cells WBC Morphology Comment (NORM) Plt Morphology Comment (NORM) RBC Morph Comment (NORM) PT (9.7-11.4) secs INR (0.00-5.90) N/A VBG pH (7.32-7.42) VBG pCO2 (45-55) mmHg VBG HCO3 (22-26) mmol/L VBG Base Excess (-2-2) MMOL/L Sodium 137 (135-145) meq/L Potassium 4.9 (3.8-5.2) meq/L Chloride 102 (98-112) meq/L Carbon Dioxide 27 (23-33) meq/L Anion Gap 8 (5-20) BUN 68 H (7-22) mg/dL Creatinine 1.2 (0.50-1.20) mg/dL Estimated GFR BUN/Creatinine Ratio 56.66 H (6-20) Glucose 101 (78-110) mg/dL Calculated Osmolality 303.0 H (267-292) mOsm/kg Calcium 8.5 L (8.7-10.7) mg/dL Magnesium (1.6-2.4) mg/dL Total Bilirubin (0.3-1.2) mg/dL AST (8-39) IU/L ALT (9-52) IU/L Alkaline Phosphatase (38-126) IU/L Troponin I (< 0.040) ng/mL NT-Pro-B Natriuret Pep (0-450) PG/ML Total Protein (6.1-8.0) g/dL Albumin (3.5-4.8) g/dL Globulin (2.50-4.10) g/dL Albumin/Globulin Ratio (1.3-2.0) mg/g TSH < 0.015 L (0.2700-4.2000) uIU/mL Free T4 1.49 (0.93-1.71) ng/dL Discharge instruction Diet regular Activity as started Medications Home Medications Medication Instructions Recorded Confirmed Type Cetirizine HCl [Zyrtec] 10 mg PO DAILY #90 cap 11/09/12 03/18/17 Clinic Diclofenac Sodium [Voltaren] 2 gm TOPICAL QID #60 tube 07/30/13 03/18/17 Clinic Oxygen (O2) 1 l NS HS #2 unit 07/30/13 Clinic Amitriptyline HCl 50 mg PO HS #30 tab 01/14/15 03/18/17 Clinic Albuterol/Ipratropium Inhaler 1 puff INH QID #3 each 07/07/16 Clinic [Combivent Respimat Inhaler] Budesonide/Formoterol Fumarate 2 puff INH BID #3 inh 07/07/16 03/18/17 Clinic [SYMBICORT] Albuterol Sulfate [Ventolin Hfa] 2 puff INH Q4-6H #1 inh 07/11/16 Clinic Oxybutynin Chloride 1 tab PO BID #60 tab 07/14/16 03/18/17 Clinic Lisinopril 1 tab PO DAILY tab 12/09/16 03/18/17 History Albuterol/Ipratrop Neb Soln 1 vial INH TID #60 vial 12/16/16 Clinic [Duoneb Neb Soln] Nebulizer 1 unit #1 unit 12/16/16 Clinic Simvastatin 20 mg PO QHS #90 tab 01/07/17 03/18/17 Clinic Levothyroxine Sodium 1 tab PO DAILY #90 tab 01/19/17 03/18/17 Clinic Fluticasone Propionate [Flonase 2 spr ALLEGRA DAILY #1 spr 01/28/17 03/18/17 Clinic Allergy Relief] Furosemide 1 tab PO BID #180 tab 02/16/17 03/18/17 Clinic Montelukast Sodium [Singulair] 1 tab ORAL QD #90 tab 02/16/17 03/18/17 Clinic Hydrocodone/Acetaminophen 1 tab PO Q4-6H #120 tab 03/07/17 03/18/17 Clinic [Hydrocodon-Acetaminophen 5-325] Apixaban [Eliquis] 5 mg PO BID tab 03/18/17 03/18/17 History Carvedilol [Coreg] 6.25 mg PO BID tablet 03/23/17 Rx Cefdinir Cap [Omnicef Cap] 300 mg PO BID #8 cap 03/23/17 Rx Furosemide [Lasix] 40 mg PO BID@0700,1300 #1 tab 03/23/17 Rx Tiotropium Inhalation Cap 18 mcg INH RTDAILY #1 inhaler 03/23/17 Rx [Spiriva Inhalation Cap] predniSONE Tab [Deltasone Tab] 10 mg PO DAILY #7 tab 03/23/17 Rx Follow-up with her PCP in 1-2 weeks, with cardiology 1-2 weeks Condition at discharge was stable for discharge Exam - Vitals Vital Signs: Vital Signs Temperature 97.8 F Temperature Source Temporal Artery Scan Pulse Rate [Radial] 46 Pulse Rate [Left Radial] 46 Pulse Rate [Pulse Oximeter] 76 Pulse Rate [Apical] 78 Pulse Rate [Telemetry] 52 Pulse Rate 58 Respiratory Rate 20 Blood Pressure [Left Arm] 138/66 Blood Pressure [Right Arm] 150/76 Pulse Ox 92 Oxygen Flow Rate 3.5 Oxygen Delivery Method Nasal Cannula Height 5 ft Weight 193 lb 12.8 oz Patient Problems - Patient Problem List (1) CHF (congestive heart failure), NYHA class III Status: Acute Qualifiers: Congestive heart failure type: combined Congestive heart failure chronicity: chronic Qualified Description: Congestive heart failure, NYHA class 3, chronic, combined Qualifier Code(s): (I50.42) Chronic combined systolic (congestive) and diastolic (congestive) heart failure (2) COPD exacerbation Status: Acute (3) HTN (hypertension) Status: Acute Qualifiers: Hypertension type: essential hypertension Qualified Description: Essential hypertension Qualifier Code(s): (I10) Essential (primary) hypertension (4) Atrial fibrillation Status: Acute Qualifiers: Atrial fibrillation type: paroxysmal Qualified Description: Paroxysmal atrial fibrillation Qualifier Code(s): (I48.0) Paroxysmal atrial fibrillation (5) Hypothyroid Status: Acute Qualifiers: Hypothyroidism type: acquired Qualified Description: Acquired hypothyroidism Qualifier Code(s): (E03.9) Hypothyroidism, unspecified
--- NOTE | 2017-03-23 13:01 | PT PM DAY ---
Diagnosis : Shortness of Breath PM - Physical Therapy S: The patient reports no new change.s O: The patient was seen this afternoon down in the therapy department. The patient ambulated all the way to the department with assist of one. She performed NuStep activities x20 minutes. We worked on upper extremity strengthening as well as lower extremity strengthening, sit to stand transfers, and balance activities. After a proper amount of rest she ambulated back to her room with assist of one. A: We will continue to progress the patient as she has shown excellent progress in the last 24-hours in her physical abilities. P: Continue seeing patient BID during the week and one time per day over the weekend for transfers, ambulation, and range of motion/strengthening exercises. OZZIE
--- NOTE | 2017-03-23 14:24 | OT PM DAY ---
Diagnosis : Shortness of Breath PM - Occupational Therapy S: The patient states she feels better than she did this morning. O: The patient transferred all the way down to PT. The patient completed therapeutic exercises including yellow theraband resisted rows, around the clocks, biceps flexion, shoulder flexion, and triceps extension, all bilaterally x15 to increase her strength to assist with transitions such as sit to stands. A: The patient would continue to benefit from therapy to increase her overall activity tolerance. P: Continue seeing patient BID during the week and one time per day over the weekend for upper extremity strengthening, ADLs, and overall functional mobility. MTDD
--- NOTE | 2017-03-25 10:23 | OT AM DAY ---
Diagnosis : Shortness of Breath AM - Occupational Therapy S: The patient reports she feels like she is doing better this afternoon. She is making noticeable gains. O: Today the patient was able to complete upper extremity strengthening activities including sitting in a chair and completing wall pulleys for shoulder extension, rows, biceps curls, shoulder adduction, and internal/ external rotation x25 repetitions. The patient did high repetitions with low weight. A: The patient is making gains; her transfers have improved. Her overall strength and safety with her ambulation have improved as well. The patient still requires stand by assist for functional transfers for balance. Her functional ambulation and transfers into bed and into a chair require stand by assist. The patient had minimal bouts of being off balance today. P: Continue seeing patient BID during the week and one time per day over the weekend for upper extremity strengthening, ADLs, and overall functional mobility. OZZIE
== END 2017-03-23 13:49 | disposition home or self-care (01) | DRG 192 ==
LOC: ER 12:22 → MED/SURG 14:21
PROVIDERS: ADMIT Family Medicine; ATTEND Family Medicine
DX: J44.9 Chronic obstructive pulmonary disease, unspecified (principal); R06.89 Other abnormalities of breathing; R05 Cough; J44.1 Chronic obstructive pulmonary disease with (acute) exacerbation; I50.9 Heart failure, unspecified; G47.33 Obstructive sleep apnea (adult) (pediatric); I48.91 Unspecified atrial fibrillation; I10 Essential (primary) hypertension; E03.9 Hypothyroidism, unspecified; E66.9 Obesity, unspecified; Z68.30 Body mass index [BMI] 30.0-30.9, adult; I25.10 Atherosclerotic heart disease of native coronary artery without angina pectoris; R32 Unspecified urinary incontinence
CPT/HCPCS: 36415; 71010; 71250; 80048; 80053; 82803; 83735; 83880; 84439; 84443; 84484; 85007; 85025; 85610; 93005; 93010; 93306; 94150; 94640; 94761; 96374; 97110; 97116; 97161; 97166; 97530; 99284; J0696; J1940; J7050; J7512; J7620

== ENCOUNTER → 2017-03-18 | Outpatient (CLI) | payer OTHER | LOC: MMPC 09:00 | DX: R04.0 Epistaxis (principal) | CPT/HCPCS: 99213; G0463 ==

== ENCOUNTER → 2017-04-13 | Outpatient (CLI) | payer OTHER ==
[2017-04-13 14:45] LABS: BLOOD UREA NITROGEN 59 mg/dL (7-22); BUN/CREATININE RATIO 31.05 (6-20); CALCIUM 9.6 mg/dL (8.7-10.7)
== END ==
LOC: LAB 10:33
PROVIDERS: ATTEND Internal Medicine Cardiovascular Disease
DX: I42.0 Dilated cardiomyopathy (principal)
CPT/HCPCS: 80048

== ENCOUNTER → 2017-04-19 | Outpatient (CLI) | payer OTHER ==
[2017-04-19 14:44] LABS: BLOOD UREA NITROGEN 90 mg/dL (7-22); BUN/CREATININE RATIO 42.85 (6-20); CALCIUM 9.2 mg/dL (8.7-10.7); MAGNESIUM 2.5 mg/dL (1.6-2.4); SERUM ALBUMIN 4.2 g/dL (3.5-4.8)
== END ==
LOC: LAB 10:29
PROVIDERS: ATTEND Physician Assistant Medical
DX: I42.0 Dilated cardiomyopathy (principal); I10 Essential (primary) hypertension
CPT/HCPCS: 36415; 80053; 83735

== ENCOUNTER → 2017-05-02 | Outpatient (CLI) | payer OTHER ==
[2017-05-02 15:52] LABS: BUN/CREATININE RATIO 25.83 (6-20); CALCIUM 8.9 mg/dL (8.7-10.7)
== END ==
LOC: LAB 08:46
PROVIDERS: ATTEND Physician Assistant Medical
DX: I50.9 Heart failure, unspecified (principal)
CPT/HCPCS: 80048

== ENCOUNTER 2017-09-16 20:02 | Observation (INO) ==
[2017-09-16] MEDS ORDERED: NORMAL SALINE 10 ML SYRINGE FLUSH IVP PRN (20:30)
[2017-09-16] MEDS ORDERED: Sodium Chloride 0.9% 1,000 ML PRIMARY IV ONE (20:30)
[2017-09-16] MEDS ORDERED: LIDOCAINE HCL 2 % 10 ML JELLY URO-JECT TOPICAL PRN (20:40)
--- NOTE | 2017-09-16 20:42 | EKG ---
[address] [place] [address] [place] [address] Measurements Intervals [place] Rate: 74 P: 70 ME: 184 QRS: -57 QRSD: 160 T: 118 QT: 436 QTc: 463 Interpretive Statements SINUS RHYTHM WITH FREQUENT SUPRAVENTRICULAR PREMATURE COMPLEXES LEFT AXIS DEVIATION LEFT BUNDLE BRANCH BLOCK Compared to ECG 03/21/2017 07:43:09 Sinus bradycardia no longer present Premature atrial beats now present Electronically Signed On 09-18-17 12:54:55 [facility] by Raul Couch [id number]
[2017-09-16 20:56] LABS: Hemoglobin [HGB] 13.4 g/dL (12.0-16.0); RED BLOOD COUNT 4.33 10^6/uL (4.20-5.40)
[2017-09-16 20:57] LABS: BASOPHILS # (AUTO) 0.04 10*3/UL; BASOPHILS % (AUTO) 0.6 % (0-1); EOSINOPHILS # (AUTO) 0.36 10*3/UL; EOSINOPHILS % (AUTO) 5.8 % (0-8); Hematocrit [HCT] 39.9 % (37.0-47.0); LYMPHOCYTES # (AUTO) 1.54 10*3/uL; MEAN CORPUSCULAR HGB CONC 33.7 g/dL (33-37); MEAN CORPUSCULAR VOLUME 92 FL (81-99); MEAN PLATELET VOLUME 7.8 FL (7.4-12.2); MONOCYTES # (AUTO) 0.58 10*3/UL (0.3-0.8); MONOCYTES % (AUTO) 9.4 % (5-15); NEUTROPHILS # (AUTO) 3.62 10*3/UL; NEUTROPHILS % (AUTO) 59.1 % (50-80); PLATELET MORPHOLOGY COMMENT NORMAL MORPHOLOGY (NORM); RBC MORPHOLOGY COMMENT NORMAL MORPHOLOGY (NORM); WBC MORPHOLOGY COMMENT NORMAL MORPHOLOGY (NORM)
[2017-09-16 21:03] LABS: BLOOD UREA NITROGEN 64 mg/dL (7-22); BUN/CREATININE RATIO 37.64 (6-20); SERUM ALBUMIN 4.1 g/dL (3.5-4.8)
[2017-09-16 21:35] LABS: BACTERIA,URINE RARE; RBC,URINE >100 /hpf
--- NOTE | 2017-09-16 22:05 | DI ---
EXAM: CT Abdomen and Pelvis Without Intravenous Contrast CLINICAL HISTORY: Gross hematuria TECHNIQUE: Axial computed tomography images of the abdomen and pelvis without intravenous contrast. Coronal and sagittal reformatted images were created and reviewed. COMPARISON: No relevant prior studies available. FINDINGS: Lower thorax: Lap band. Small hiatal hernia. ABDOMEN: Liver: Unremarkable. Gallbladder and bile ducts: Unremarkable. No calcified stones. No ductal dilation. Pancreas: Unremarkable. No ductal dilation. Spleen: Unremarkable. No splenomegaly. Adrenals: Unremarkable. No mass. Kidneys and ureters: Heterogeneous soft tissue attenuation mass associated with the right kidney, replacing the normal medullary fat. This mass measures approximately 5.0 x 3.7 x 5.1 cm. This may extend into the proximal ureter. No evidence for hydronephrosis or calcified renal stones. Stomach and bowel: Colonic diverticulosis. No evidence for acute inflammation at this time. No obstruction. No mucosal thickening. Appendix: No findings to suggest acute appendicitis. PELVIS: Bladder: Hardin catheter with associated intraluminal urinary bladder air. No stones. Reproductive: Unremarkable as visualized. ABDOMEN and PELVIS: Intraperitoneal space: Unremarkable. No free air. No significant fluid collection. Bones/joints: Multilevel degenerative disc disease with disc space height loss and osteophytosis area facet joint hypertrophy also noted within the lumbar spine. No acute fracture. No dislocation. Soft tissues: Ventral hernia repair with mesh. Mild protrusion of fat through the abdominal wall defect. Vasculature: Mild atherosclerosis. No abdominal aortic aneurysm. Lymph nodes: Unremarkable. No enlarged lymph nodes. IMPRESSION: 1. Right renal mass measuring 5.1 cm length, likely representing the etiology of hematuria. Nonspecific, poorly characterized on noncontrast imaging though concern is for malignancy such as renal cell carcinoma. Urology consultation recommended. 2. Lap band. Small hiatal hernia. 3. Nonacute findings as above.
[2017-09-17] MEDS ORDERED: LIDOCAINE W/ SODIUM BICARB 0.5 ML SYR SUBD PRN (00:04)
[2017-09-17] MEDS ORDERED: Simvastatin Tab 20 MG TAB PO SCH (00:04)
[2017-09-17] MEDS ORDERED: ACETAMINOPHEN 325 MG TABLET PO PRN (00:04)
[2017-09-17] MEDS ORDERED: NORMAL SALINE 10 ML SYRINGE FLUSH IVP PRN (00:04)
[2017-09-17] MEDS ORDERED: ONDANSETRON 4 MG/2 ML VIAL IVP PRN (00:04)
[2017-09-17] MEDS ORDERED: HYDROcodone-APAP 5 MG -325 MG TABLET PO SCH (00:04)
[2017-09-17] MEDS ORDERED: DOCUSATE 100 MG CAPSULE PO PRN (00:04)
[2017-09-17] MEDS ORDERED: TIOTROPIUM BROMIDE 18 MCG CAPSULE INH SCH ×2 (00:04→07:00)
[2017-09-17] MEDS ORDERED: CALCIUM CARBONATE 500 MG (TUMS) CHEWABLE TABLET PO PRN (00:04)
[2017-09-17] MEDS ORDERED: AMITRIPTYLINE 25 MG TABLET PO PRN (00:15)
[2017-09-17] MEDS: Sodium Chloride 0.9% 1,000 ML PRIMARY IV SCH ×2 (00:38→07:20)
--- NOTE | 2017-09-17 01:59 | PDOC ---
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 She had heart catheter 2 months ago with no blockages found she was started on Eliquis for stroke prophylaxis. Also she developed renal failure since she was on spironolactone and Lasix and SYDNIE inhibitor in the past. She has been having right flank pain for a month no fever no chills. She saw her nurse practitioner for this in the she was told she had no infection. Yesterday she had sudden onset of severe gross hematuria around 3 PM and another episode at 6 PM which was worse than the first one patient was really frightened since she was bleeding on the bathroom floor . [place] out of town and logistics are difficult for her patient was seen in the ER by Dr. Sher who apparently spoke with urology on-call. Patient was admitted overnight hydrated Eliquis was stopped she has a 5 x 5 x 5 cm mass in the right kidney most likely eroding into the right ureter patient is very scared and does not wish to go home she lives alone she states that Dr. Savage is her kidney specialist who she seen in the past and would like this evaluated having limited resources here at [facility] with no urology specialty care I spoke to Dr. Coburn in the ER at [facility] who graciously accepted the patient. On the date of discharge, the patient was examined: Gen.: No acute distress, alert, nontoxic Heart: Regular rate and rhythm, no murmurs, clicks, gallops, or rubs Lungs: Clear to auscultation bilaterally, breathing is nonlabored Abdomen/GI: Normal tones on auscultation, soft, nontender, nondistended Musculoskeletal/extremities: No clubbing, cyanosis, or edema Vitals reviewed and are listed below Vital Signs (24 hrs) Temp Pulse Pulse Pulse Resp BP Pulse Ox 09/17/17 11:11 68 18 09/17/17 11:10 68 18 09/17/17 08:46 97 F 56 L 18 128/53 98 09/17/17 06:45 64 18 09/17/17 06:44 64 18 09/17/17 06:43 64 09/17/17 06:42 62 18 99 09/17/17 05:00 97.2 F 60 16 134/42 98 09/17/17 00:53 95 09/17/17 00:08 84 20 09/17/17 00:00 97.3 F 63 20 142/59 93 09/16/17 20:03 97.6 F 81 18 155/77 92 Laboratory Results 09/16/17 09/16/17 09/16/17 Range/Units 20:45 20:45 20:45 WBC 6.1 (4.8-10.8) 10^3/uL RBC 4.33 (4.20-5.40) 10^6/uL Hgb 13.4 (12.0-16.0) g/dL Hct 39.9 (37.0-47.0) % MCV 92 (81-99) FL MCH 31.0 (27-31) PG MCHC 33.7 (33-37) g/dL RDW Coeff of Catarino 13.4 (11.5-14.5) % Plt Count 253 (140-350) 10*3/uL MPV 7.8 (7.4-12.2) FL Neut % (Auto) 59.1 (50-80) % Lymph % (Auto) 25.1 (10-50) % [place] % (Auto) 9.4 (5-15) % Eos % (Auto) 5.8 (0-8) % Baso % (Auto) 0.6 (0-1) % Neut # (Auto) 3.62 10*3/UL Lymph # (Auto) 1.54 10*3/uL [place] # (Auto) 0.58 (0.3-0.8) 10*3/UL Eos # (Auto) 0.36 10*3/UL Baso # (Auto) 0.04 10*3/UL WBC Morphology Comment Normal morphology (NORM) Plt Morphology Comment Normal morphology (NORM) RBC Morph Comment Normal morphology (NORM) PT 11.5 H (9.7-11.4) secs INR 1.08 (0.00-5.90) N/A APTT 30.6 (22.6-36.2) SECS Sodium 143 (135-145) meq/L Potassium 4.4 (3.8-5.2) meq/L Chloride 109 (98-112) meq/L Carbon Dioxide 22 L (23-33) meq/L Anion Gap 12 (5-20) BUN 64 H (7-22) mg/dL Creatinine 1.7 H (0.50-1.20) mg/dL Estimated GFR Developer Advisor BUN/Creatinine Ratio 37.64 H (6-20) Glucose 97 (78-110) mg/dL Calculated Osmolality 313.0 H (267-292) mOsm/kg Calcium 9.0 (8.7-10.7) mg/dL Total Bilirubin 0.4 (0.3-1.2) mg/dL AST 22 (8-39) IU/L ALT 23 (9-52) IU/L Alkaline Phosphatase 96 (38-126) IU/L Total Protein 6.6 (6.1-8.0) g/dL Albumin 4.1 (3.5-4.8) g/dL Globulin 2.5 (2.50-4.10) g/dL Albumin/Globulin Ratio 1.60 (1.3-2.0) mg/g Urine RBC (NONE) /hpf Urine WBC (NONE) Ur Squamous Epith Cells (NONE) Ur Renal Epithelial Cell (NONE) Urine Crystals Urine Bacteria (NONE) Urine Casts (NONE) Urine Mucus (NONE) Urine Trichomonas (NONE) Urine Yeast (NONE) 09/16/17 Range/Units 21:00 WBC (4.8-10.8) 10^3/uL RBC (4.20-5.40) 10^6/uL Hgb (12.0-16.0) g/dL Hct (37.0-47.0) % MCV (81-99) FL MCH (27-31) PG MCHC (33-37) g/dL RDW Coeff of Catarino (11.5-14.5) % Plt Count (140-350) 10*3/uL MPV (7.4-12.2) FL Neut % (Auto) (50-80) % Lymph % (Auto) (10-50) % [place] % (Auto) (5-15) % Eos % (Auto) (0-8) % Baso % (Auto) (0-1) % Neut # (Auto) 10*3/UL Lymph # (Auto) 10*3/uL [place] # (Auto) (0.3-0.8) 10*3/UL Eos # (Auto) 10*3/UL Baso # (Auto) 10*3/UL WBC Morphology Comment (NORM) Plt Morphology Comment (NORM) RBC Morph Comment (NORM) PT (9.7-11.4) secs INR (0.00-5.90) N/A APTT (22.6-36.2) SECS Sodium (135-145) meq/L Potassium (3.8-5.2) meq/L Chloride (98-112) meq/L Carbon Dioxide (23-33) meq/L Anion Gap (5-20) BUN (7-22) mg/dL Creatinine (0.50-1.20) mg/dL Estimated GFR BUN/Creatinine Ratio (6-20) Glucose (78-110) mg/dL Calculated Osmolality (267-292) mOsm/kg Calcium (8.7-10.7) mg/dL Total Bilirubin (0.3-1.2) mg/dL AST (8-39) IU/L ALT (9-52) IU/L Alkaline Phosphatase (38-126) IU/L Total Protein (6.1-8.0) g/dL Albumin (3.5-4.8) g/dL Globulin (2.50-4.10) g/dL Albumin/Globulin Ratio (1.3-2.0) mg/g Urine RBC >100 A (NONE) /hpf Urine WBC 1-3 (NONE) Ur Squamous Epith Cells None (NONE) Ur Renal Epithelial Cell None (NONE) Urine Crystals None Urine Bacteria Rare (NONE) Urine Casts None (NONE) Urine Mucus Rare (NONE) Urine Trichomonas None (NONE) Urine Yeast None (NONE) Assessment and Plan: 1. As per discharge assessments above 2. Disposition: Transferred to [facility] accepted by Dr. Coburn 3. Condition on discharge, stable and improved. 4. Diet: regular diet 5. Activities: resume normal activities 6. Follow-Up: 1. PCP 2. 7. Medications at the Time of Discharge: Home Medications Medication Instructions Recorded Confirmed Type Cetirizine HCl [Zyrtec] 10 mg PO DAILY #90 cap 11/09/12 09/16/17 History Oxygen (O2) 1 l NS HS #2 unit 07/30/13 09/16/17 Clinic Budesonide/Formoterol Fumarate 2 puff INH BID #3 inh 07/07/16 09/16/17 Rx [SYMBICORT] Oxybutynin Chloride 1 tab PO BID #60 tab 07/14/16 09/16/17 Rx Simvastatin 20 mg PO QHS #90 tab 01/07/17 09/16/17 Rx Fluticasone Propionate [Flonase 2 spr ALLEGRA DAILY #1 spr 01/28/17 09/16/17 Rx Allergy Relief] Montelukast Sodium [Singulair] 1 tab ORAL QD #90 tab 02/16/17 09/16/17 Rx Albuterol/Ipratropium Inhaler 1 puff INH QID #3 ea 03/31/17 09/16/17 Rx [Combivent Respimat Inhaler] Amitriptyline HCl 1 tab PO QHS #90 tab 03/31/17 09/16/17 Rx Apixaban [Eliquis] 5 mg PO BID #180 tab 03/31/17 09/16/17 Rx Carvedilol 1 tab PO BID #180 tab 03/31/17 09/16/17 Rx Fluticasone/Salmeterol [Advair 1 puff INH BID #1 puff 03/31/17 09/16/17 Rx 250-50 Diskus] Furosemide 40 mg PO BID #180 tab 03/31/17 09/16/17 Rx Lisinopril 1 tab PO DAILY #90 tab 03/31/17 09/16/17 Rx Tiotropium [place] [Spiriva] 18 mcg INH QD #1 inhaler 03/31/17 09/16/17 Rx Albuterol/Ipratrop Neb Soln 1 vial INH TID #90 vial 04/04/17 09/16/17 Rx [Duoneb Neb Soln] levothyroxine 75 mcg tablet 75 mcg PO QDAY #90 tab 08/24/17 09/16/17 Rx omeprazole 40 mg capsule,delayed 40 mg PO QDAY #30 cap 08/24/17 09/16/17 Rx release hydrocodone 5 mg-acetaminophen 325 1 tab PO Q4-6H #120 tab 08/30/17 09/16/17 Rx mg tablet 3 Generic Name Dose Route Start Last Admin Trade Name Freq PRN Reason Stop Dose Admin Acetaminophen 650 mg 09/17/17 00:04 Tylenol PO Q6H PRN Pain or Fever Hydrocodone Bitart/Acetaminophen 1 tab 09/17/17 00:04 09/17/17 00:36 Oscar 5/325 Tab PO Not Given Q4-6H HOLDEN Albuterol Sulfate 2.5 mg 09/17/17 07:00 09/17/17 11:10 Albuterol Neb Soln 0.083% NEB 2.5 mg RTQID HOLDEN Administration Amitriptyline HCl 50 mg 09/17/17 00:15 Amitriptyline Hcl PO BEDTIME PRN Agitation Budesonide 0.5 mg 09/17/17 07:00 09/17/17 06:42 Pulmicort Neb Soln NEB 0.5 mg RTBID HOLDEN Administration Calcium Carbonate 1 - 2 tab 09/17/17 00:04 Tums PO Q6H PRN Heartburn Carvedilol 6.25 mg 09/17/17 09:00 09/17/17 08:30 Coreg PO 6.25 mg BID HOLDEN Administration Docusate Sodium 100 mg 09/17/17 00:04 Colace PO BID PRN Constipation Fluticasone Propionate 2 sprays 09/17/17 09:00 09/17/17 08:29 Flonase Nasal [place] 0.05% ALLEGRA 2 sprays DAILY HOLDEN Administration Sodium Chloride 1,000 mls @ 125 mls/hr 09/17/17 00:04 09/17/17 07:20 Normal Saline PRIMARY IV 125 mls/hr .Q8H HOLDEN Administration Sodium Chloride 25 mls @ 200 mls/hr 09/17/17 00:04 Normal Saline 0.9% IV .Post Infusion PRN No Primary IV for Flush ONLY Levothyroxine Sodium 75 mcg 09/17/17 05:30 09/17/17 04:52 Synthroid PO 75 mcg DAILY@0530 HOLDEN Administration Lidocaine HCl 0.5 ml 09/17/17 00:04 Lidocaine Buffered Inj SUBD ONCE PRN IV Starts Loratadine 10 mg 09/17/17 09:00 09/17/17 08:30 Claritin PO 10 mg DAILY HOLDEN Administration Nf-(Oxybutynin 1 tab 09/17/17 09:00 09/17/17 08:29 Chloride [Oxybutynin PO Not Given Chloride] 5mg) BID HOLDEN Omeprazole 40 mg 09/17/17 06:30 09/17/17 06:06 Prilosec PO 40 mg DAILY@0630 HOLDEN Administration Ondansetron HCl 4 mg 09/17/17 00:04 Zofran Inj IVP Q4H PRN NAUSEA / VOMITING Fluticasone/Salmeterol 1 puff 09/17/17 07:00 09/17/17 06:45 Advair Diskus 250/50 Inhaler INH 1 puff RTBID HOLDEN Administration Simvastatin 20 mg 09/17/17 00:04 09/17/17 00:37 Zocor PO Not Given BEDTIME HOLDEN Sodium Chloride 5 - 20 ml 09/17/17 00:04 Saline Flush IVP BID PRN Flush 8. Time, care, counseling and coordination of care for this discharge is greater than 30 minutes. Past Medical History Medical History: 1. CHF, probably NYHA class II-III. 2. COPD. 3. RALF, but cannot tolerate CPAP therapy. 4. HTN. 5. Arthritis. 6. Hypothyroidism. 7. Seasonal allergies Surgical History: 1. Appendectomy. 2. Hysterectomy. 3. LAP-BAND. 4. Total Knee Replacement. 5. Total Shoulder Replacement. 6. heart catheterization, per patient, in past 12 months. Pertinent Family History: no family history of CHF. no family history of diabetes. Past Social History: does not smoke or drink. . 4 children, but one passed on. Lives near [place], [place]. Tobacco Use: Never Smoker In the Past 12 Months, Have Used or Abuse Any of the Following Substance: None Medication / Allergies Home Medications: Home Medications Medication Instructions Recorded Confirmed Type Cetirizine HCl [Zyrtec] 10 mg PO DAILY #90 cap 11/09/12 09/16/17 History Oxygen (O2) 1 l NS HS #2 unit 07/30/13 09/16/17 Clinic Budesonide/Formoterol Fumarate 2 puff INH BID #3 inh 07/07/16 09/16/17 Rx [SYMBICORT] Oxybutynin Chloride 1 tab PO BID #60 tab 07/14/16 09/16/17 Rx Simvastatin 20 mg PO QHS #90 tab 01/07/17 09/16/17 Rx Fluticasone Propionate [Flonase 2 spr ALLEGRA DAILY #1 spr 01/28/17 09/16/17 Rx Allergy Relief] Montelukast Sodium [Singulair] 1 tab ORAL QD #90 tab 02/16/17 09/16/17 Rx Albuterol/Ipratropium Inhaler 1 puff INH QID #3 ea 03/31/17 09/16/17 Rx [Combivent Respimat Inhaler] Amitriptyline HCl 1 tab PO QHS #90 tab 03/31/17 09/16/17 Rx Apixaban [Eliquis] 5 mg PO BID #180 tab 03/31/17 09/16/17 Rx Carvedilol 1 tab PO BID #180 tab 03/31/17 09/16/17 Rx Fluticasone/Salmeterol [Advair 1 puff INH BID #1 puff 03/31/17 09/16/17 Rx 250-50 Diskus] Furosemide 40 mg PO BID #180 tab 03/31/17 09/16/17 Rx Lisinopril 1 tab PO DAILY #90 tab 03/31/17 09/16/17 Rx Tiotropium [place] [Spiriva] 18 mcg INH QD #1 inhaler 03/31/17 09/16/17 Rx Albuterol/Ipratrop Neb Soln 1 vial INH TID #90 vial 04/04/17 09/16/17 Rx [Duoneb Neb Soln] levothyroxine 75 mcg tablet 75 mcg PO QDAY #90 tab 08/24/17 09/16/17 Rx omeprazole 40 mg capsule,delayed 40 mg PO QDAY #30 cap 08/24/17 09/16/17 Rx release hydrocodone 5 mg-acetaminophen 325 1 tab PO Q4-6H #120 tab 08/30/17 09/16/17 Rx mg tablet Allergies/Adverse Reactions: Allergies 3 Allergy/AdvReac Type Severity Reaction Status Date / Time clonidine HCl [From Catapres] Allergy Mild ITCHING Verified 09/17/17 00:08 Exam - Vitals Vital Signs: Vital Signs Temperature 97.3 F Pulse Rate [Apical] 84 Pulse Rate [Pulse Oximeter] 63 Respiratory Rate 20 Blood Pressure [Left Arm] 142/59 Pulse Ox 95 Oxygen Flow Rate 3 Oxygen Delivery Method Nasal Cannula Height 5 ft Weight 176 lb 4 oz Results - Labs CBC and BMP: 09/16/17 20:45 09/16/17 20:45 Assessment and Plan - Patient Problems (1) 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
--- NOTE | 2017-09-17 03:21 | PDOC ---
Female Problem HPI - General Chief Complaint: Genitourinary Complaint Stated Complaint: BLOOD IN URINE Date Seen by Provider: 09/16/17 Time Seen by Provider: 20:10 Source: POSITIVE: Patient Exam Limitations: POSITIVE: No limitations Nurse's Notes Reviewed & Considered: Yes - History of Present Illness Initial Comments: The patient is a 77-year-old female. She states that for about the past month she has had some right flank pain. This evening she developed heavy hematuria. Onset of her hematuria of was around 2:58 PM. She states she had another episode around 6 PM. She complains of some urinary urgency. No dysuria. No fevers or chills. She states that she saw her nurse practitioner recently with complaints of left flank pain and the patient states that she was told that she had "no infections ". Patient has a history of atrial fibrillation and is on Eliquis 5 mg twice daily. She states she had a heart catheterization 2 months ago, about the time she was diagnosed with atrial fibrillation. She states that her catheterization showed "no blockages". History of congestive heart failure and she states that she is on 3 L of oxygen at night. History of COPD. Body Location Affected: REPORTS: Back (Right flank), Other (Hematuria) Timing: REPORTS: Gradual Duration: <24 hours (Gross hematuria today; some right flank discomfort for a month) Severity: Severe (Hematuria) Quality: REPORTS: "Pain" (Right flank discomfort for one month) Context: DENIES: Frequent Bathing, Poor Hygiene, Frequent [employer] [place], Known STD Exposure, Unknown STD Exposure, Possible STD Exposure, Multiple Partners, Known , Recent Vaginal Delivery, Recent Delivery, Recent Miscarriage, Recent Trauma, Recent Surgery, Other Location of Pain: REPORTS: Right, Flank Pain Vaginal Bleeding: DENIES: Abnormal Bleeding, More Severe Than Periods, Heavier Than Periods, Similar to Periods, [employer] Than Periods, Spotting, Passing Clots , Passing Tissue, Other : REPORTS: Post-Menopausal Urinary Symptoms: REPORTS: Blood in Urine, Urinary Urgency Similar Symptoms Previously: No Recent Care Received: REPORTS: Recently Seen, Treated by MD (As above) Any Prior Injuries Related to Current Complaint?: No - Patient Home Medications Home Medications: Home Medications Cetirizine HCl [Zyrtec] 10 mg PO DAILY #90 cap 11/09/12 Oxygen (O2) 1 l NS HS #2 unit 07/30/13 Budesonide/Formoterol Fumarate [SYMBICORT] 2 puff INH BID #3 inh 07/07/16 Oxybutynin Chloride 1 tab PO BID #60 tab 07/14/16 Simvastatin 20 mg PO QHS #90 tab 01/07/17 Fluticasone Propionate [Flonase Allergy Relief] 2 spr ALLEGRA DAILY #1 spr Montelukast Sodium [Singulair] 1 tab ORAL QD #90 tab 02/16/17 Albuterol/Ipratropium Inhaler [Combivent Respimat Inhaler] 1 puff INH QID #3 ea 03/31/17 Amitriptyline HCl 1 tab PO QHS #90 tab 03/31/17 Apixaban [Eliquis] 5 mg PO BID #180 tab 03/31/17 Carvedilol 1 tab PO BID #180 tab 03/31/17 Fluticasone/Salmeterol [Advair 250-50 Diskus] 1 puff INH BID #1 puff 03/31/17 Furosemide 40 mg PO BID #180 tab 03/31/17 Lisinopril 1 tab PO DAILY #90 tab 03/31/17 Tiotropium [place] [Spiriva] 18 mcg INH QD #1 inhaler 03/31/17 Albuterol/Ipratrop Neb Soln [Duoneb Neb Soln] 1 vial INH TID #90 vial 04/04/17 levothyroxine 75 mcg tablet 75 mcg PO QDAY #90 tab 08/24/17 omeprazole 40 mg capsule,delayed release 40 mg PO QDAY #30 cap 08/24/17 hydrocodone 5 mg-acetaminophen 325 mg tablet 1 tab PO Q4-6H #120 tab 08/30/17 - Patient Allergies Allergies/Adverse Reactions: Allergies 3 Allergy/AdvReac Type Severity Reaction Status Date / Time clonidine HCl [From Catapres] Allergy Mild ITCHING Verified 09/17/17 00:08 Past Medical History - heen HEENT History: Denies History Additional HEENT History: reading glasses Cardiovascular History: Hypertension, CHF, Arrhythmia, Hyperlipidemia, Other ( please comment) Additional Cardiovasular History: heart cath x 2 with no interventions Respiratory History: COPD, Sleep Apnea, Home Oxygen Use Additional Respiratory History: 3 liters at night Gastrointestinal History: GERD Genitourinary History: Recurrent UTI Endocrine History: Hyperthyroidism Musculoskeletal History: Carpal Tunnel Prosthesis or Implant: Yes Additional Musculoskeletal History: right shoulder replacement. bilateral knee replacement Neurological History: Denies History Blood Disorders: Anemia Psychiatric History: Denies History History of Sexually Transmitted Diseases: No Female Reproductive History: Hysterectomy Cancer History: Denies History In Past Year Been Physically Harmed or Verbally Threatened: No History of MDRO: No History of Other Communicable Diseases: No Tobacco Use: Never Smoker Alcohol Use: None In the Past 12 Months, Have Used or Abuse Any Substance: None Previous Surgical History: Yes Type / Date of Surgery: right shoulder replacement. bilateral knee replacement. lap band. carpal tunnel. hysterectomy. appendectomy Anesthesia Reactions: No Malignant Hyperthermia: No Significant Family History: Cancer, Diabetes Past Medical History Reviewed: Reviewed - No Changes ROS - Limitations ROS Limitations: No Limitations Constitution: REPORTS: Denies Symptoms Cardiovascular: REPORTS: Denies Cardiac Symptoms Respiratory: REPORTS: Denies Resp Symptoms Neurological: REPORTS: Denies Neuro Symptoms Gastrointestinal: REPORTS: Denies GI Symptoms Endocrine: REPORTS: Denies Symptoms Musculoskeletal: REPORTS: Denies MS Symptoms Genitourinary: REPORTS: Flank Pain (Right), Hematuria Eyes: REPORTS: Denies Symptoms ENT: REPORTS: Denies Symptoms Skin: REPORTS: Denies Skin Symptoms Lympathic: REPORTS: Denies Lympathic Symptoms Immunologic: POSITIVE: Denies Symptoms Psychiatric: POSITIVE: Denies Psych Symptoms Female Genitourinary Exam - General Appearance General Appearance: POSITIVE: Alert, Cooperative, No Acute Distress, No Evidence of Trauma - HEENT HEENT: POSITIVE: Head Inspection Nml, Eyes Inspection Nml, Ears Inspection Nml, Nose Inspection Nml, Oral/Dental Inspect. Nml, Pharynx Inspect. Nml, PERRL, EOMI - Neck Neck: POSITIVE: Normal Inspection, No Apparent Injury - Respiratory Respiratory: POSITIVE: No Respiratory Distress, Breath Sounds Normal, Chest Non- Tender - Cardiovascular Cardiovascular: POSITIVE: Regular Rate and Rhythm, Heart Sounds Normal, Equal Pulses, Strong Pulses Peripheral Pulses: Radial (R): 2+, Radial (L): 2+ - Abdomen Abdomen: POSITIVE: Soft, Normal Bowel Sounds, Non-Tender, No Distention, No Organomegaly - Back Back: POSITIVE: CVA Tenderness (R) (Right, mild) - Skin Skin: POSITIVE: Intact, Normal For Race, Warm, Dry, No Rash - Extremities Extremity: Non-Tender: (All Extremities), Normal ROM: (All Extremities), Normal Inspection: (All Extremities) - Neurological / Psychological Neurological: POSITIVE: Oriented X3, welt rander Normal As Tested, Motor Normal, Sensation Normal, 5, 6 Female Genitourinary Progress - Results Reviewed by me Xrays/CTs/US Reviewed by me: Yes Discussed with Radiologist: Yes Radiology Findings: CT scan of the abdomen and pelvis without contrast shows a 5 x 3.7 x 5.1 mass in the right kidney which may extend into the proximal ureter. No hydronephrosis or renal stones. Lab Results Reviewed by Me: Yes (UA in excess of 100 red blood cells per high- power field) CBC and BMP: 09/16/17 20:45 09/16/17 20:45 EKG Interpreted/Reviewed By Me:: Yes (atrial fibrillation with left bundle- branch block) EKG Interpretation:: POSITIVE: Normal Rate, Abnormal EKG (Atrial fibrillation with left bundle-branch block; unchanged from previous electrocardiograms). NEGATIVE: Normal Sinus Rhythm, Normal Intervals (Left bundle-branch block), Normal [place], Normal QRS (Left bundle-branch block left bundle-branch block), Normal ST/T - Patient's Progress Pain Medication Addressed: POSITIVE: Not Applicable School/Work Release Addressed: POSITIVE: Not Applicable Re-Examine Time: 22:10 Re-Examine Comment: Case discussed with Dr. Mosquera, urology at [facility]. He declines to except the patient in transfer. [place] out of town and has prominent hematuria and he is on anticoagulation. Therefore it is felt best to admit this patient and monitor her hematuria and discontinue her Eliquis and monitor her hemodynamically. Case was discussed with Dr. Warren, hospitalist, who has admitted the patient. Arrangements for further urologic evaluation will be made. Status: POSITIVE: Unchanged, Re-Examined - Consult Consult (If Yes, Name of Consulting MD & Time Called): Yes (, urology, [facility]; Dr. Warren, hospitalist [id number] ) Consulting MD will see pt:: POSITIVE: [facility] [place] Admit Counseled: POSITIVE: Patient, Family (), RE: Lab Results, RE: Radiology Results, RE: DX, RE: Need for F/U Patient Care Time - Estimated PCT Patient Care Time (In Minutes): 60 Vital Signs - Recent Vital Signs Vital Signs: Vital Signs (Last 8 hours) Temp Pulse Resp BP Pulse Ox 09/16/17 20:03 97.6 F 81 18 155/77 92 - VS Reviewed Vital Signs Reviewed: Yes Discharge Clinical Impression: Gross hematuria, Renal neoplasm, Anticoagulant long-term use Atrial fibrillation Qualifiers: Atrial fibrillation type: paroxysmal Qualified Code(s): I48.0 - Paroxysmal atrial fibrillation Condition: Stable Date Decision to Admit to Inpatient: 09/16/17 Time Decision to Admit to Inpatient: 22:10
[2017-09-17] MEDS ORDERED: LEVOTHYROXINE 75 MCG TABLET PO SCH (05:30)
[2017-09-17] MEDS ORDERED: OMEPRAZOLE 40 MG CAPSULE PO SCH (06:30)
[2017-09-17] MEDS: ALBUTEROL SULFATE 2.5 MG/3 ML NEB SCH ×2 (06:44→11:10)
[2017-09-17 06:45] VITALS: RESP 18
[2017-09-17] MEDS ORDERED: ALBUTEROL SULFATE INH SCH (07:00)
[2017-09-17] MEDS ORDERED: FLUTICASONE/SALMETEROL 250/50 UD INHALER INH SCH (07:00)
[2017-09-17] MEDS ORDERED: IPRATROPIUM INH SCH (07:00)
[2017-09-17] MEDS ORDERED: IPRATROPIUM/ALBUTEROL SULFATE 3 ML NEB NEB SCH (07:00)
[2017-09-17] MEDS ORDERED: BUDESONIDE 0.5 MG/2 ML NEB SCH (07:00)
[2017-09-17 08:46] VITALS: BP 128/53; TEMP 97; O2SAT 98
[2017-09-17] MEDS ORDERED: FORMOTEROL FUMARATE INH SCH (09:00)
[2017-09-17] MEDS ORDERED: OXYBUTYNIN CHLORIDE 5 MG PO SCH (09:00)
[2017-09-17] MEDS ORDERED: LORATADINE 10 MG TABLET PO SCH (09:00)
[2017-09-17] MEDS ORDERED: CARVEDILOL 6.25 MG TABLET PO SCH (09:00)
[2017-09-17] MEDS ORDERED: BUDESONIDE INH SCH (09:00)
[2017-09-17] MEDS ORDERED: FLUTICASONE PROPIONATE 16 GRAM (120 SPRAYS / BOTTLE) ENOS SCH (09:00)
--- NOTE | 2017-09-17 11:16 | DCSUMMARY ---
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
== END 2017-09-17 12:09 | disposition short-term general hospital (02) ==
LOC: ER 20:02 → MED/SURG 20:02
PROVIDERS: ADMIT Internal Medicine; ATTEND Internal Medicine